=== PATIENT | male | born 1975 | race Caucasian/White ===

== ENCOUNTER 2020-07-25 08:53 | Outpatient (REF) | payer MEDICARE, MEDICAID, SELFPAY ==
[2020-07-25 10:55] LABS: Alanine Aminotransferase 31 U/L (0-40); Albumin Level 4.6 g/dL (3.5-5.0); Alkaline Phosphatase 32 U/L (39-117); Anion Gap 12 (12-20); Aspartate Amino Transferase 22 U/L (5-37); Bilirubin Total 0.5 mg/dL (0.0-1.0); Blood Urea Nitrogen 15 mg/dL (9-16); Calcium 8.9 mg/dL (8.4-10.2); Carbon Dioxide 27 mmol/L (22-29); Chloride 104 mmol/L (96-108); Cholesterol 208 mg/dL; Estimated Glomerular Filt Rate > 60; Glucose Random 110 mg/dL (60-115); HDL Cholesterol 32 mg/dL; LDL Cholesterol Calculated 123 mg/dl; Potassium 3.7 mmol/L (3.3-5.1); Sodium 139 mmol/L (135-145); Total Protein 6.8 g/dL (6.5-8.0); Triglycerides 268 mg/dL
[2020-07-25 10:57] LABS: Uric Acid 6.6 mg/dL (3.4-7.0)
[2020-07-25 11:14] LABS: Thyroid Stimulating Hormone 1.32 uIU/mL (0.32-4.0)
[2020-07-25 13:18] LABS: Folate 18.4 ng/mL (> or = 4.0); Vitamin B12 583 pg/mL (200-900)
== END 2020-07-25 08:54 | disposition home or self-care (01) ==
LOC: HO.LAB 08:53
PROVIDERS: PCP Internal Medicine; Visit Provider Internal Medicine
DX: E66.9 Obesity, unspecified (principal); G47.33 Obstructive sleep apnea (adult) (pediatric); E78.1 Pure hyperglyceridemia; F41.9 Anxiety disorder, unspecified; I10 Essential (primary) hypertension
CPT/HCPCS: 36415; 80053; 80061; 82607; 82746; 84436; 84443; 84550

== ENCOUNTER → 2022-05-07 14:26 | Outpatient (BNVA) | payer MEDICARE, MEDICAID, SELFPAY | PROVIDERS: PCP Internal Medicine; Visit Provider Internal Medicine | DX: Z13.89 Encounter for screening for other disorder (principal) ==

== ENCOUNTER 2023-01-14 13:45 | Outpatient (AMB) | payer MEDICARE, MEDICAID, SELFPAY ==
[2023-01-14 14:30] VITALS: BP 142/90; PULSE 72; RESP 17; O2SAT 98; BMI 33.4
--- NOTE | 2023-01-14 14:30 | A.OFFPC_ITS ---
Vital Signs 01/14/23 14:30 01/14/23 15:42 Height 6 ft Weight 246 lb 6 oz BMI 33.4 BP 142/90 H 130/80 Blood Pressure Location Lt brachial Lt brachial Position Sitting Sitting Respiration 17 Pulse 72 Pulse Source Pulse Oximeter Pulse Oximetry (%) 98 Oxygen Delivery Method Room Air Intake Visit Reasons: Annual Exam Intake Note: Patient is here today for a physical. 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 Accompanied by: Self / Same As Patient Allergies cefaclor Allergy (Unknown, Verified 01/14/23 14:56) Unknown Erythromycin Allergy (Unknown, Verified 01/14/23 14:56) Unknown Penicillins [PENICILLINS] Allergy (Unknown, Verified 01/14/23 14:56) UNKNOWN simvastatin [Zocor] Allergy (Unknown, Verified 01/14/23 14:56) Unknown Medication List - Last Reconciled 01/14/23 by Mckayla Gutierrez MD acetaminophen (Tylenol Extra Strength) 1,000 mg (2 x 500 mg) PO TID PRN 30 days allopurinol 100 mg PO BID 28 days bupropion HCl 150 mg PO DAILY cholecalciferol (vitamin D3) 25 mcg (1/2 x 50 mcg (2,000 unit)) PO QAM [CPAP ] cyanocobalamin (vitamin B-12) (Vitamin B-12) 1,000 mcg PO DAILY fenofibrate nanocrystallized 145 mg PO BEDTIME fluticasone propionate 50 mcg/actuation 1 spray intranasal DAILY folic acid 1 mg PO DAILY melatonin 3 mg PO BEDTIME multivitamin 1 tab PO DAILY risperidone 1.5 mg PO BEDTIME risperidone (Risperdal) 0.5 mg PO BEDTIME triamcinolone acetonide 0.1% 1 appl topical DAILY 7 days Tobacco use date assessed: 01/07/22 HPI Annual Exam HPI Details 47-year-old obese male with impaired glu cose tolerance impulse control behavior hypercholesterolemia obstructive sleep apnea coming in for physical exam last seen in May 2022. [facility] Medical History (Updated 01/14/23 @ 15:57 by Mckayla Gutierrez MD) Impacted cerumen of both ears Screening for colon cancer Rash Impaired glucose tolerance Mental and behavioral problem Impulse control disorder Hypercholesterolemia Obesity (BMI 30-39.9) Obstructive sleep apnea Anemia Vitamin B12 deficiency Anxiety Surgical History History of surgery on lower extremity History of eye surgery Family History Father Past heart attack Mother Breast cancer Paternal Grandfather CVD (cardiovascular disease) Myocardial infarction Paternal Uncle Myocardial infarction CVD (cardiovascular disease) Social History Housing: Apartment Alcohol intake: never Patient Tobacco Use Status: Former Tobacco user Tobacco use type: Cigarette e-Cigarette/Vaping Use: Never Used Second Hand Smoke Exposure: No service: No Current occupational status: disabled Cognitive needs: Yes Hearing needs: No Vision needs: Yes Questionnaire Thrive Questionnaire Date Thrive assessed: 05/18/22 AUDIT C Alcohol Use Questionnaire (AUDIT-C) 1. How often do you have a drink containing alcohol?: Never 2. How many drinks containing alcohol do you have on a typical day when you are drinking?: 1 or 2 3. How often do you have six or more drinks on one occasion?: Never Total Score: 0 Score Reviewed/Action Taken: No FELIBERTO-7 AMB Questionnaire FELIBERTO-7 Date FELIBERTO - 7 assessed: 05/18/22 Source: Developed by Drs. Lester Mora, Ayana Mead, Trace Lomeli and colleagues, with an educational rekha from [employer]. Review of Systems Const Denies poor appetite and Denies weakness Eyes Denies no additional complaints ENT Reports Normal hearing present, Denies dizziness, Denies nasal congestion, Denies tinnitus and Denies sore throat Card Denies chest pain, Denies syncope, Denies rapid heart rate and Denies dyspnea Resp Denies cough and Denies dyspnea GI Denies change in stool character, Reports constipation, Denies diarrhea, Denies nausea and Denies vomiting Denies dysuria and Denies urinary frequency Neuro Reports Normal hearing present, Denies confusion, Denies dizziness, Denies syncope and Denies weakness Psych Denies confusion Physical exam (Primary Care) Vital Signs: Last Vital Signs Pulse 72 01/14/23 14:30 Resp 17 01/14/23 14:30 BP 142/90 H 01/14/23 14:30 Pulse Ox 98 01/14/23 14:30 Oxygen Delivery Method Room Air 01/14/23 14:30 BMI result Body Mass Index 33.4 Tobacco/Smoking Status: Tobacco use Status Tobacco use date assessed 01/07/22 01/14/23 14:31 Patient Tobacco Use Status Former Tobacco user 01/14/23 14:31 Tobacco use type Cigarette 01/14/23 14:31 e-Cigarette/Vaping Use Never Used 01/14/23 14:31 Thrive Assessment: Date of Thrive Assessment Date Thrive assessed 05/18/22 01/14/23 14:31 Const General: No confusion Orientation/consciousness: No confusion HENMT Other: impacted cerumen bilateral Head: Yes normocephalic Ears: external ears normal Face and sinus: Yes normal facial exam Mouth: moist mucous membranes Throat: Yes tonsils normal Eyes Conjunctivae: conjunctivae normal Pupils: Equal, round and reactive pupils present and Pupil accommodation reflex normal Direct Ophthalmoscopy: normal light reflex Neck Neck: No lymphadenopathy Thyroid: Thyroid normal Chest Chest palpation & inspection: normal inspection of the chest Resp Effort & Inspection: normal respiratory effort and no audible wheezes Auscultation: clear to auscultation bilaterally, no crackles, no wheezes and lung sounds not diminished Cardio Rate: regular rate Rhythm: regular rhythm Peripheral pulses: radial pulses present and dorsalis pedis present GI Palpation (GI): no masses Auscultation: normal bowel sounds and normoactive bowel sounds Rectal Exam - Male: Yes deferred Skin General skin exam: no rashes or lesions noted Rashes: no rashes Neuro General: No confusion Cranial nerves: Yes Equal, round and reactive pupils present and Yes Normal hearing present Cognition (Neuro): normal cognition Gait exam (Neuro): Normal gait present Motor exam (neuro): 5/5 motor strength present throughout Deep tendon reflexes (DTR's): Right brachioradialis reflex intensity grade: 2+, Left brachioradialis reflex intensity grade: 2+, Right patellar reflex intensity grade: 2+ and Left patellar reflex intensity grade: 2+ Extrem General: No edema Office Procedures Cerumen Removal From which ear canal was the cerumen removed: bilateral Removal: otoscope w/curette Notes: patient tolerated procedure well, no complications and ear canal clear [id number] Wax Removal by Spoon/Curette Flu Questionnaire Does the patient have a severe egg allergy?: No Does the patient have severe life threatening allergies?: No Does the patient have a fever or illness today?: No Has the patient ever had Guillain-[place] Syndrome?: No Has the patient ever had any past reaction to a flu shot?: No Immunizations flu vacc [id number] 6mos up(PF) 60 mcg(15 mcgx4)/0.5 mL IM syringe Performing Provider: Mckayla Gutierrez MD Performing [facility] [place] [facility] Administered by: CRISTIANE Duran on 01/14/23 15:19 Dose Route Admin Location Dispensed Lot Number Expiration Date NDC Staple Laster 0.5 mL IM Left Deltoid 0.5 mL [id number] 09/11/23 [id number] [employer] VIS Given Date VIS Provided VIS Publication Date 01/14/23 Single Vaccine 20 Eligibility Eligibility Date Funding Source Not VFC Eligible 01/14/23 Private Assessment and Plan Assessment & Plan (1) Annual physical exam: Code(s): Z00.00 - Encounter for general adult medical examination without abnormal findi ngs (2) Obesity (BMI 30-39.9): Code(s): E66.9 - Obesity, unspecified Plan: Diet and exercise noted weight loss (3) Obstructive sleep apnea: Comment: On the CPAP uses > 4 hours and benefits patient Code(s): G47.33 - Obstructive sleep apnea (adult) (pediatric) Plan: Continue to use the CPAP more than 4 hours a night and benefits from this (4) Anemia: Code(s): D64.9 - Anemia, unspecified Plan: Patient needs blood work follow-up (5) Hypercholesterolemia: Code(s): E78.00 - Pure hypercholesterolemia, unspecified Plan: Avoid fried foods, chicken skin, eggs, butter margarine, pastries and meat. Be it pork or beef they have a lot of cholesterol LDL goal of less than 130 and triglyceride of less than 150. Patient is on FENA fibroid blood work request (6) Impaired glucose tolerance: Code(s): R73.02 - Impaired glucose tolerance (oral) Plan: Decrease the amount of carbohydrate intake, pasta, bread, rice and potatoes are all sugar and that is aside from all the sweet stuff, remember that fruits are good but they are Sweet also. Blood work requested (7) Impulse control disorder: Code(s): F63.9 - Impulse disorder, unspecified Plan: Continue with counseling and therapy (8) Impacted cerumen of both ears: Code(s): H61.23 - Impacted cerumen, bilateral Plan: scoop and otoscope used TM intact (9) Onychomycosis: Code(s): B35.1 - Tinea unguium Orders: Orders Influenza [id number] Immunization Today Z23 - Encounter for immunization Referrals Podiatry Referral B35.1 - Tinea unguium Medications: New dextromethorphan polistirex ER (Delsym 12 hour) 10 mL PO Q12H PRN 89 mL 0RF cough Refilled fluticasone propionate 50 mcg/actuation administer into each nostril 1 spray intranasal DAILY 15.8 mL 6RF R73.02 - Impaired glucose tolerance (oral) Coding Level of Care Code Est Pt Prev Care 40-64y(55342) Diagnoses Annual physical exam Z00.00 Obesity (BMI 30-39.9) E66.9 Obstructive sleep apnea G47.33 Anemia D64.9 Hypercholesterolemia E78.00 Impaired glucose tolerance R73.02 Impulse control disorder F63.9 Impacted cerumen of both ears H61.23 Onychomycosis B35.1 CPT Codes Office Procedure - CPT: [id number]-[id number] Wax Removal by Spoon/Curette ([id number])
[2023-01-14 15:42] VITALS: BP 130/80
== END 2023-01-14 16:07 | disposition home or self-care (01) ==
PROVIDERS: PCP Internal Medicine; Visit Provider Internal Medicine
DX: Z23 Encounter for immunization (principal); Z00.00 Encounter for general adult medical examination without abnormal findings; E66.9 Obesity, unspecified; Z68.33 Body mass index [BMI] 33.0-33.9, adult; F63.9 Impulse disorder, unspecified; H61.23 Impacted cerumen, bilateral
CPT/HCPCS: 69210; 90471; 90686; 99396

== ENCOUNTER 2023-01-15 08:46 | Outpatient (REF) | payer MEDICARE, MEDICAID, SELFPAY ==
[2023-01-15 09:01] LABS: MANUAL DIFF FLAG NO
[2023-01-15 10:10] LABS: Basophils Percent Auto 0.4 % (0-2); Eosinophils Absolute Auto 0.1 X10*3/uL (0.0-0.4); Eosinophils Percent Auto 1.3 % (0-4); Hematocrit 39.8 % (42.0-52.0); Hemoglobin 13.2 g/dl (14.0-18.0); Imm Gran Abs Auto 0.01 X10*3/uL (0.00-0.03); Imm Gran Pct Auto 0.2 % (0.0-0.4); Immature Retic Fraction 12.6 % (2.3-13.4); Lymphocytes Absolute Auto 1.7 X10*3/uL (1.2-4.9); Lymphocytes Percent Auto 36.9 % (20-40); Mean Corpuscular HGB Conc 33.2 g/dl (31.0-36.0); Mean Corpuscular Hemoglobin 29.9 pg (27.0-33.0); Mean Platelet Volume 10.2 fL (9.4-12.4); Monocytes Absolute Auto 0.3 X10*3/uL (0.1-1.2); Neutrophils Absolute Auto 2.5 x10*3/uL (2.0-8.3); Neutrophils Percent Auto 55.2 % (45-73); Platelet Count 186 X10*3/uL (160-400); Red Blood Count 4.42 X10*6/uL (4.60-5.80); Red Cell Distribution Width 12.4 % (11.0-16.0); Reticulocyte Percent 1.3 % (0.5-1.8); Reticulocytes Absolute 0.055 X10*6/uL (0.026-0.095); White Blood Count 4.5 X10*3/uL (4.8-10.8)
[2023-01-15 10:22] LABS: Estimated Average Glucose 94 mg/dL; Hemoglobin A1c % 4.9 % (<6.0)
[2023-01-15 10:36] LABS: Alanine Aminotransferase 13 U/L (0-40); Albumin Level 4.6 g/dL (3.5-5.0); Alkaline Phosphatase 32 U/L (39-117); Anion Gap 12 (12-20); Aspartate Amino Transferase 12 U/L (5-37); Bilirubin Total 0.4 mg/dL (0.0-1.0); Blood Urea Nitrogen 13 mg/dL (9-16); Calcium 9.5 mg/dL (8.4-10.2); Carbon Dioxide 26 mmol/L (22-29); Chloride 109 mmol/L (96-108); Cholesterol 139 mg/dL (<200); Estimated Glomerular Filt Rate > 60; Glucose Random 99 mg/dL (60-115); HDL Cholesterol 38 mg/dL (>40); Iron 58 mcg/dL (45-160); LDL Cholesterol Calculated 87 mg/dL (<100); Percent Iron Saturation 20 % (15-50); Potassium 3.8 mmol/L (3.3-5.1); Sodium 143 mmol/L (135-145); Total Iron Binding Capacity 297 mcg/dL (228-428); Total Protein 6.9 g/dL (6.5-8.0); Triglycerides 74 mg/dL (<150); Unsaturated Iron Binding 239 ug/dL
[2023-01-15 10:47] LABS: Ferritin 153 ng/mL (20-250); Free T4 (Free Thyroxine) 0.88 ng/dL (0.71-1.85); Thyroid Stimulating Hormone 1.36 uIU/mL (0.32-4.0)
[2023-01-15 10:50] LABS: Folate 11.5 ng/mL (> or = 4.0); Vitamin B12 916 pg/mL (200-900)
== END 2023-01-15 08:47 | disposition home or self-care (01) ==
LOC: HO.LAB 08:46
PROVIDERS: PCP Internal Medicine; Visit Provider Internal Medicine
DX: E78.00 Pure hypercholesterolemia, unspecified (principal); R73.02 Impaired glucose tolerance (oral); D64.9 Anemia, unspecified
CPT/HCPCS: 36415; 80053; 80061; 82607; 82728; 82746; 83036; 83540; 84439; 84443; 85025; 85045

== ENCOUNTER 2023-04-25 14:57 | Outpatient (AMB) | payer MEDICARE, MEDICAID, SELFPAY ==
[2023-04-25 15:02] VITALS: BP 158/90; PULSE 73; O2SAT 98; BMI 33.0
--- NOTE | 2023-04-25 15:02 | MHC.PC.OV ---
Vital Signs 04/25/23 15:02 04/25/23 15:42 Height 6 ft Weight 243 lb BMI 33.0 BP 158/90 H 130/70 Blood Pressure Location Lt brachial Lt brachial Position Sitting Sitting Pulse 73 Pulse Source Pulse Oximeter Pulse Oximetry (%) 98 Oxygen Delivery Method Room Air Intake Visit Reasons: 3mth f/u Intake Note: Patient is here to follow up on 3 months Allergies cefaclor Allergy (Unknown, Verified 04/25/23 15:03) Unknown Erythromycin Allergy (Unknown, Verified 04/25/23 15:03) Unknown Penicillins [PENICILLINS] Allergy (Unknown, Verified 04/25/23 15:03) UNKNOWN simvastatin [Zocor] Allergy (Unknown, Verified 04/25/23 15:03) Unknown Tobacco use date assessed: 04/25/23 HPI 3mth f/u HPI Details 47-year-old obese male with obstructive sleep apnea hypercholesterolemia impaired glucose tolerance impulse control disorder coming in for follow-up. Last seen in January 2023 [facility] Medical History (Updated 01/14/23 @ 15:57 by Mckayla Gutierrez MD) Impacted cerumen of both ears Screening for colon cancer Rash Impaired glucose tolerance Mental and behavioral problem Impulse control disorder Hypercholesterolemia Obesity (BMI 30-39.9) Obstructive sleep apnea Anemia Vitamin B12 deficiency Anxiety Surgical History History of surgery on lower extremity History of eye surgery Family History Father Past heart attack Mother Breast cancer Paternal Grandfather CVD (cardiovascular disease) Myocardial infarction Paternal Uncle Myocardial infarction CVD (cardiovascular disease) Social History Housing: Apartment Alcohol intake: never Patient Tobacco Use Status: Former Tobacco user Tobacco use type: Cigarette e-Cigarette/Vaping Use: Never Used Second Hand Smoke Exposure: No service: No Current occupational status: disabled Cognitive needs: Yes Hearing needs: No Vision needs: Yes Questionnaire Thrive Questionnaire Date Thrive assessed: 04/25/23 I am a: Patient What is your living situation today?: I have a steady place to live Within the past 12 months, did the food you bought not last and you didn't have the money to get more?: Never true Within the past 12 months, did you worry whether your food would run out before you got money to buy more?: Never true Do you have trouble paying for medicines?: No Do you have trouble getting transportation to medical appointments?: No Do you have trouble paying your heating and electricity bill?: No Do you have trouble taking care of your child, family member or friend?: No Do you have trouble with day-to-day activities such as bathing, preparing meals, shopping, managing finances, etc.?: No Are you currently unemployed and looking for a job?: No Are you interested in more education?: No Please select the resources that you would like help with: None THRIVE Score: 0 AUDIT C Alcohol Use Questionnaire (AUDIT-C) 1. How often do you have a drink containing alcohol?: Never 2. How many drinks containing alcohol do you have on a typical day when you are drinking?: 1 or 2 3. How often do you have six or more drinks on one occasion?: Never Total Score: 0 Score Reviewed/Action Taken: No FELIBERTO-7 AMB Questionnaire FELIBERTO-7 Date FELIBERTO - 7 assessed: 04/25/23 Source: Developed by Drs. Lester Mora, Ayana Mead, Trace Lomeli and colleagues, with an educational rekha from [employer]. Physical exam (Primary Care) Vital Signs: Last Vital Signs Pulse 73 04/25/23 15:02 BP 158/90 H 04/25/23 15:02 Pulse Ox 98 04/25/23 15:02 Oxygen Delivery Method Room Air 04/25/23 15:02 BMI result Body Mass Index 33.0 Tobacco/Smoking Status: Tobacco use Status Tobacco use date assessed 04/25/23 04/25/23 15:03 Patient Tobacco Use Status Former Tobacco user 04/25/23 15:03 Tobacco use type Cigarette 04/25/23 15:03 e-Cigarette/Vaping Use Never Used 04/25/23 15:03 Thrive Assessment: Date of Thrive Assessment Date Thrive assessed 04/25/23 04/25/23 15:03 Const General: alert; No acute distress Eyes Conjunctivae: conjunctivae normal Resp Auscultation: clear to auscultation bilaterally Cardio Rate: regular rate Rhythm: regular rhythm GI Inspection: Yes normal to inspection Extrem General: Yes normal to inspection and No edema Assessment and Plan Assessment & Plan (1) Obesity (BMI 30-39.9): Code(s): E66.9 - Obesity, unspecified Plan: Diet and exercise (2) Obstructive sleep apnea: Comment: On the CPAP uses > 4 hours and benefits patient Code(s): G47.33 - Obstructive sleep apnea (adult) (pediatric) Plan: Continue to use the CPAP more than 4 hours a night and benefits from this (3) Hypercholesterolemia: Code(s): E78.00 - Pure hypercholesterolemia, unspecified Plan: Avoid fried foods, chicken skin, eggs, butter margarine, pastries and meat. Be it pork or beef they have a lot of cholesterol LDL goal of less than 130 and triglyceride of less than 150. Patient on fenofibrate (4) Impaired glucose tolerance: Code(s): R73.02 - Impaired glucose tolerance (oral) Plan: Decrease the amount of carbohydrate intake, pasta, bread, rice and potatoes are all sugar and that is aside from all the sweet stuff, remember that fruits are good but they are Sweet also. (5) Anemia: Code(s): D64.9 - Anemia, unspecified Plan: Chronic and stable Orders: Referrals Gastroenterology Referral Z12.11 - Encounter for screening for malignant neoplasm of colon Coding Level of Care Code Est Pt Level 4 (63417) Diagnoses Obesity (BMI 30-39.9) E66.9 Obstructive sleep apnea G47.33 Hypercholesterolemia E78.00 Impaired glucose tolerance R73.02 Anemia D64.9
[2023-04-25 15:42] VITALS: BP 130/70
== END 2023-04-25 15:58 | disposition home or self-care (01) ==
PROVIDERS: PCP Internal Medicine; Visit Provider Internal Medicine
DX: G47.33 Obstructive sleep apnea (adult) (pediatric) (principal); E78.00 Pure hypercholesterolemia, unspecified; E66.9 Obesity, unspecified; Z68.33 Body mass index [BMI] 33.0-33.9, adult; R73.02 Impaired glucose tolerance (oral); D64.9 Anemia, unspecified
CPT/HCPCS: 99214

== ENCOUNTER 2023-05-23 15:13 | Outpatient (AMB) | payer MEDICARE, MEDICAID, SELFPAY ==
--- NOTE | 2023-05-23 15:16 | A.OFFVIS_ITS ---
Intake Vital Signs 05/23/23 15:17 Height 6 ft Weight 247 lb BMI 33.5 Blood Pressure Location Lt brachial Position Sitting Pulse Source Pulse Oximeter Oxygen Delivery Method Room Air Intake Visit Reasons: [facility] Road Equipment Operator Required: No Allergies cefaclor Allergy (Unknown, Verified 05/23/23 15:17) Unknown Erythromycin Allergy (Unknown, Verified 05/23/23 15:17) Unknown Penicillins [PENICILLINS] Allergy (Unknown, Verified 05/23/23 15:17) UNKNOWN simvastatin [Zocor] Allergy (Unknown, Verified 05/23/23 15:17) Unknown Medication List - Last Reconciled 05/23/23 by Mckayla Gutierrez MD acetaminophen (Tylenol Extra Strength) 1,000 mg (2 x 500 mg) PO TID PRN 30 days allopurinol 100 mg PO BID 28 days bupropion HCl 150 mg PO DAILY cholecalciferol (vitamin D3) 25 mcg (1/2 x 50 mcg (2,000 unit)) PO QAM [CPAP ] cyanocobalamin (vitamin B-12) (Vitamin B-12) 1,000 mcg PO DAILY dextromethorphan polistirex ER (Delsym 12 hour) 10 mL PO Q12H PRN fenofibrate nanocrystallized 145 mg PO BEDTIME fluticasone propionate 50 mcg/actuation 1 spray intranasal DAILY folic acid 1 mg PO DAILY melatonin 3 mg PO BEDTIME multivitamin 1 tab PO DAILY prednisone 4 tabs QD x 2 days then 3 tabs QD x 2 days then 2 tabs Qd x 2 days then 1 tab QD x 2 days PO daily; risperidone 1.5 mg PO BEDTIME risperidone (Risperdal) 0.5 mg PO BEDTIME triamcinolone acetonide 0.5% 1 appl topical DAILY HPI SAWV HPI Details 47-year-old obese male with obstructive sleep apnea hypercholesterolemia impaired glucose tolerance and anemia coming in for annual well visit. Last seen in April 2023. [facility] Medical History (Updated 05/23/23 @ 19:41 by Mckayla Gutierrez MD) Impacted cerumen of both ears Screening for colon cancer Rash Impaired glucose tolerance Mental and behavioral problem Impulse control disorder Hypercholesterolemia Obesity (BMI 30-39.9) Obstructive sleep apnea Anemia Vitamin B12 deficiency Anxiety Surgical History History of surgery on lower extremity History of eye surgery Family History Father Past heart attack Mother Breast cancer Paternal Grandfather CVD (cardiovascular disease) Myocardial infarction Paternal Uncle Myocardial infarction CVD (cardiovascular disease) Social History Housing: Apartment Alcohol intake: never Patient Tobacco Use Status: Former Tobacco user Tobacco use type: Cigarette e-Cigarette/Vaping Use: Never Used Second Hand Smoke Exposure: No service: No Current occupational status: disabled Cognitive needs: Yes Hearing needs: No Vision needs: Yes Questionnaire Medicare Wellness Checkup What is your age?: 65-69 (18-64) What gender do you identify with?: male During the past 4 weeks, how much have you been bothered by emotional problems such as feeling anxious, depressed, irritable, sad or downhearted, and blue?: not at all During the past 4 weeks, has your physical & emotional health limited your social activities with family, friends, neighbors, or groups?: not at all During the past 4 weeks, how much bodily pain have you generally had?: no pain During the past 4 weeks, was someone available to help you if you needed & wanted help?: no, not at all During the past 4 weeks, what was the hardest physical activity you could do for at least 2 minutes?: light Can you get to places out of walking distance without help? (For eg., can you travel alone on buses, taxis or drive your car?): Yes Can you go shopping for groceries or clothes without someone's help?: Yes Can you prepare your own meals?: No Can you do your housework without help?: No Because of any health problems, do you need the help of another person with your personal care needs such as eating, bathing, dressing or getting around the house?: No Can you handle your own money without help?: Yes During the past 4 weeks, how would you rate your health in general?: very good During the past 4 weeks how have things been going for you?: pretty well Are you having difficulties driving your car?: no Do you always fasten your seat belt when you are in a car?: yes, usually During past 4 weeks, have you been bothered by the following: never: Falling or dizzy when standing up Have you fallen 2 or more times in the past year?: No Are you afraid of falling?: No Are you a smoker?: no During the past 4 weeks, how many drinks of wine, beer, or other alcoholic beverages did you have?: no alcohol at all Do you exercise for about 20 minutes 3 or more times a week?: yes, most of the time Have you been given information to help with the following?: yes: Keeping track of your medications? and no: Hazards in your house that might hurt you? How often do you have trouble taking medicines the way you have been told to take them?: I always take medicine as prescribed How confident are you that you can control & manage most of your health problems?: not very confident What is your race?: White PHQ-9 Over the last 2 weeks, how often have you been bothered by any of the following problems? 1. Little interest or pleasure in doing things: not at all 2. Feeling down, depressed, or hopeless: not at all 3. Trouble falling or staying asleep, or sleeping too much: not at all 4. Feeling tired or having little energy: not at all 5. Poor appetite or overeating: not at all 6. Feeling bad about yourself - or that you are a failure or have let yourself o r your family down: not at all 7. Trouble concentrating on things, such as reading the newspaper or watching television: not at all 8. Moving or speaking so slowly that other people could have noticed. Or the opposite - being so fidgety or restless that you have been moving around a lot more than usual: not at all 9. Thoughts that you would be better off or of hurting yourself in some way: not at all Total score: 0 Depression Screening Interpretation: Negative Depression Screening Done: Yes 36378 - PHQ-9 Billing: Yes Source: Developed by Drs. Lester Mora, Ayana Mead, Trace alonso nd colleagues, with an educational rekha from [employer]. Review of Systems Const Denies poor appetite and Denies weakness Eyes Denies no additional complaints ENT Reports Normal hearing present, Denies dizziness, Denies nasal congestion, Denies tinnitus and Denies sore throat Card Denies chest pain, Denies syncope, Denies rapid heart rate and Denies dyspnea Resp Denies cough and Denies dyspnea GI Denies change in stool character, Reports constipation, Denies diarrhea, Denies nausea and Denies vomiting Denies dysuria and Denies urinary frequency Neuro Reports Normal hearing present, Denies confusion, Denies dizziness, Denies syncope and Denies weakness Psych Denies confusion Physical Exam Vital Signs: Oxygen Delivery Method Room Air 05/23/23 15:17 BMI result Body Mass Index 33.5 Const General: No confusion Orientation/consciousness: No confusion HEENT Head: Yes normocephalic Ears: external ears normal and TM's normal bilaterally Face and sinus: Yes normal facial exam Mouth: moist mucous membranes Throat: Yes tonsils normal Eyes Conjunctivae: conjunctivae normal Pupils: Equal, round and reactive pupils present and Pupil accommodation reflex normal Direct Ophthalmoscopy: normal light reflex Neck Neck: No lymphadenopathy Thyroid: Thyroid normal Chest Chest palpation & inspection: normal inspection of the chest Resp Effort & Inspection: normal respiratory effort and no audible wheezes Auscultation: clear to auscultation bilaterally, no crackles, no wheezes and lung sounds not diminished Cardio Rate: regular rate Rhythm: regular rhythm Peripheral pulses: radial pulses present and dorsalis pedis present GI Palpation (GI): no masses Auscultation: normal bowel sounds and normoactive bowel sounds Rectal Exam - Male: Yes deferred Skin General skin exam: no rashes or lesions noted Rashes: no rashes Neuro General: No confusion Cranial nerves: Yes Equal, round and reactive pupils present and Yes Normal hearing present Cognition (Neuro): normal cognition Gait exam (Neuro): Normal gait present Motor exam (neuro): 5/5 motor strength present throughout Deep tendon reflexes (DTR's): Right brachioradialis reflex intensity grade: 2+, Left brachioradialis reflex intensity grade: 2+, Right patellar reflex intensity grade: 2+ and Left patellar reflex intensity grade: 2+ Extrem General: No edema Assessment & Plan Assessment & Plan (1) Medicare annual wellness visit, subsequent: Code(s): Z00.00 - Encounter for general adult medical examination without abnormal findings Plan: Keep well hydrated, keep active and eat healthy (2) Obstructive sleep apnea: Comment: On the CPAP uses > 4 hours and benefits patient Code(s): G47.33 - Obstructive sleep apnea (adult) (pediatric) Plan: Continue to use the CPAP more than 4 hours a night and benefits from this. (3) Obesity (BMI 30-39.9): Code(s): E66.9 - Obesity, unspecified Plan: Diet and exercise (4) Hypercholesterolemia: Code(s): E78.00 - Pure hypercholesterolemia, unspecified Plan: Avoid fried foods, chicken skin, eggs, butter margarine, pastries and meat. Be it pork or beef they have a lot of cholesterol LDL goal of less than 130 and triglyceride of less than 150 on fenofibrate (5) Impulse control disorder: Code(s): F63.9 - Impulse disorder, unspecified Plan: Continue with psychiatric management. (6) Screening for colon cancer: Code(s): Z12.11 - Encounter for screening for malignant neoplasm of colon Plan: Reminded about colonoscopy (7) Contact dermatitis: Code(s): L25.9 - Unspecified contact dermatitis, unspecified cause Qualifiers: Contact dermatitis type: irritant Contact dermatitis trigger: non-food plants Qualified Code(s): L24.7 - Irritant contact dermatitis due to plants, except food Plan: Oral steroids and cream sent in. Orders: Referrals Gastroenterology Referral Z12.11 - Encounter for screening for malignant neoplasm of colon Medications: New prednisone 4 tabs QD x 2 days then 3 tabs QD x 2 days then 2 tabs Qd x 2 days then 1 tab QD x 2 days PO daily; 20 tabs 0RF J45.909 - Unspecified asthma, uncomplicated, L25.9 - Unspecified contact dermatitis, unspecified cause triamcinolone acetonide 0.5% apply to forarms bilateral 1 appl topical DAILY 30 grams 0RF L25.9 - Unspecified contact dermatitis, unspecified cause Quality Reporting (2019) Depression/Bipolar (159/160/161/177) PHQ-9: Total score: 0 Coding Level of Care Code Medicare Subsequent (G0439) Diagnoses Medicare annual wellness visit, subsequent Z00.00 Obstructive sleep apnea G47.33 Obesity (BMI 30-39.9) E66.9 Hypercholesterolemia E78.00 Impulse control disorder F63.9 Screening for colon cancer Z12.11 Irritant contact dermatitis due to plants, except food L24.7 Contact dermatitis type: irritant Contact dermatitis trigger: non-food plants
[2023-05-23 15:17] VITALS: BMI 33.5
== END 2023-05-23 16:40 | disposition home or self-care (01) ==
PROVIDERS: Visit Provider Internal Medicine
DX: Z00.00 Encounter for general adult medical examination without abnormal findings (principal); G47.33 Obstructive sleep apnea (adult) (pediatric); E66.9 Obesity, unspecified; Z68.33 Body mass index [BMI] 33.0-33.9, adult; F63.9 Impulse disorder, unspecified
CPT/HCPCS: G0439

== ENCOUNTER 2023-05-27 07:59 | Outpatient (AMB) | payer MEDICARE, MEDICAID, SELFPAY ==
[2023-05-27 08:03] VITALS: BMI 33.5
--- NOTE | 2023-05-27 08:03 | A.OFFPC_ITS ---
Vital Signs 05/27/23 08:03 Height 6 ft Weight 247 lb BMI 33.5 Blood Pressure Location Lt brachial Position Sitting Pulse Source Pulse Oximeter Oxygen Delivery Method Room Air Intake Visit Reasons: poison cathi Intake Note: Patient did not want me to touch him. Says he has poison cathi! No vitals were taken, but states that cream/ointment did not work for him. Allergies cefaclor Allergy (Unknown, Verified 05/27/23 08:03) Unknown Erythromycin Allergy (Unknown, Verified 05/27/23 08:03) Unknown Penicillins [PENICILLINS] Allergy (Unknown, Verified 05/27/23 08:03) UNKNOWN simvastatin [Zocor] Allergy (Unknown, Verified 05/27/23 08:03) Unknown Tobacco use date assessed: 04/25/23 Dental Screening Dental Screen Date: 05/27/23 Did you have a dental visit in the last 12 months?: Yes Did you have a dental problem in the last 6 months where you did not have access to dental care?: No Was dental information given to patient?: Patient has dentist HPI poison cathi HPI Details 47-year-old obese male with impulse cont rol be disorder coming in for an acute problem. Patient was just seen 4 days ago for allergic contact dermatitis and was prescribed oral steroids and steroid cream. Patient continues to have the rash with a lot of pruritus. Prompting for consultation. [facility] Medical History (Updated 05/27/23 @ 08:34 by Mckayla Gutierrez MD) Impacted cerumen of both ears Screening for colon cancer Rash Impaired glucose tolerance Mental and behavioral problem Impulse control disorder Hypercholesterolemia Obesity (BMI 30-39.9) Obstructive sleep apnea Anemia Vitamin B12 deficiency Anxiety Surgical History History of surgery on lower extremity History of eye surgery Family History Father Past heart attack Mother Breast cancer Paternal Grandfather CVD (cardiovascular disease) Myocardial infarction Paternal Uncle Myocardial infarction CVD (cardiovascular disease) Social History Housing: Apartment Alcohol intake: never Patient Tobacco Use Status: Former Tobacco user Tobacco use type: Cigarette e-Cigarette/Vaping Use: Never Used Second Hand Smoke Exposure: No service: No Current occupational status: disabled Cognitive needs: Yes Hearing needs: No Vision needs: Yes Questionnaire PHQ-9 Over the last 2 weeks, how often have you been bothered by any of the following problems? 1. Little interest or pleasure in doing things: not at all 2. Feeling down, depressed, or hopeless: not at all 3. Trouble falling or staying asleep, or sleeping too much: not at all 4. Feeling tired or having little energy: not at all 5. Poor appetite or overeating: not at all 6. Feeling bad about yourself - or that you are a failure or have let yourself or your family down: not at all 7. Trouble concentrating on things, such as reading the newspaper or watching television: not at all 8. Moving or speaking so slowly that other people could have noticed. Or the opposite - being so fidgety or restless that you have been moving around a lot more than usual: not at all 9. Thoughts that you would be better off or of hurting yourself in some way: not at all Total score: 0 Depression Screening Interpretation: Negative Depression Screening Done: Yes 36039 - PHQ-9 Billing: Yes Source: Developed by Drs. Lester Mora, Ayana Mead, Trace Lomeli and colleagues, with an educational rekha from [employer]. Thrive Questionnaire Date Thrive assessed: 04/25/23 AUDIT C Alcohol Use Questionnaire (AUDIT-C) 1. How often do you have a drink containing alcohol?: Never 2. How many drinks containing alcohol do you have on a typical day when you are drinking?: 1 or 2 3. How often do you have six or more drinks on one occasion?: Never Total Score: 0 Score Reviewed/Action Taken: No FELIBERTO-7 AMB Questionnaire FELIBERTO-7 Date FELIBERTO - 7 assessed: 04/25/23 Source: Developed by Drs. Lester Mora, Ayana Mead, Trace Lomeli and colleagues, with an educational rekha from [employer]. Physical exam (Primary Care) Vital Signs: Oxygen Delivery Method Room Air 05/27/23 08:03 BMI result Body Mass Index 33.5 Tobacco/Smoking Status: Tobacco use Status Tobacco use date assessed 04/25/23 05/27/23 08:04 Patient Tobacco Use Status Former Tobacco user 05/27/23 08:04 Tobacco use type Cigarette 05/27/23 08:04 e-Cigarette/Vaping Use Never Used 05/27/23 08:04 PHQ-9: PHQ-9 Score PHQ-9: Total score 0 05/27/23 08:04 Depression Screening Interpretation: Negative Thrive Assessment: Date of Thrive Assessment Date Thrive assessed 04/25/23 05/27/23 08:04 Skin Other: Maculopapular Erythematous rash on both arms and chest and face Assessment and Plan Assessment & Plan (1) Allergic contact dermatitis: Code(s): L23.9 - Allergic contact dermatitis, unspecified cause Plan: will give the steroids but this time methylprednisolone, hydroxyzine sent in for the pruritus and refill on the cream given. Medications: New methylprednisolone PO PER PKG DIR for 6 days 21 ea 0RF L23.9 - Allergic contact dermatitis, unspecified cause hydroxyzine HCl 25 mg PO TID PRN 30 tabs 0RF itching L23.9 - Allergic contact dermatitis, unspecified cause Refilled triamcinolone acetonide 0.5% apply to forarms bilateral 1 appl topical DAILY 45 grams 0RF L25.9 - Unspecified contact dermatitis, unspecified cause Coding Level of Care Code Est Pt Level 3 (43657) Diagnoses Allergic contact dermatitis L23.9
== END 2023-05-27 08:39 | disposition home or self-care (01) ==
PROVIDERS: PCP Internal Medicine; Visit Provider Internal Medicine
DX: L23.9 Allergic contact dermatitis, unspecified cause (principal)
CPT/HCPCS: 99213

== ENCOUNTER 2023-09-12 15:39 | Outpatient (AMB) | payer MEDICARE, SELFPAY ==
[2023-09-12 15:47] VITALS: BP 162/82; PULSE 75; BMI 34.4
--- NOTE | 2023-09-12 15:47 | A.OFFPC_ITS ---
Vital Signs 09/12/23 15:47 Height 6 ft Weight 254 lb BMI 34.4 BP 162/82 H Blood Pressure Location Lt brachial Position Sitting Pulse 75 Pulse Source Pulse Oximeter Oxygen Delivery Method Room Air Intake Visit Reasons: Obesity Organ Recovery Coordinator Required: No Resident Manager: Present Allergies cefaclor Allergy (Unknown, Verified 09/12/23 15:47) Unknown Erythromycin Allergy (Unknown, Verified 09/12/23 15:47) Unknown Penicillins [PENICILLINS] Allergy (Unknown, Verified 09/12/23 15:47) UNKNOWN simvastatin [Zocor] Allergy (Unknown, Verified 09/12/23 15:47) Unknown Tobacco use date assessed: 04/25/23 Dental Screening Dental Screen Date: 05/27/23 HPI Obesity HPI Details 48-year-old male with hypercholesterolem ia obstructive sleep apnea impulse control disorder impaired glucose tolerance last seen in 06/01/2023 having allergic contact dermatitis. Patient is here for follow-up.. BP good at home , uses the CPAP Q night PFS Medical History (Updated 05/27/23 @ 08:34 by Mckayla Gutierrez MD) Impacted cerumen of both ears Screening for colon cancer Rash Impaired glucose tolerance Mental and behavioral problem Impulse control disorder Hypercholesterolemia Obesity (BMI 30-39.9) Obstructive sleep apnea Anemia Vitamin B12 deficiency Anxiety Surgical History History of surgery on lower extremity History of eye surgery Family History Father Past heart attack Mother Breast cancer Paternal Grandfather CVD (cardiovascular disease) Myocardial infarction Paternal Uncle Myocardial infarction CVD (cardiovascular disease) Social History Housing: Apartment Alcohol intake: never Patient Tobacco Use Status: Former Tobacco user Tobacco use type: Cigarette e-Cigarette/Vaping Use: Never Used Second Hand Smoke Exposure: No service: No Current occupational status: disabled Cognitive needs: Yes Hearing needs: No Vision needs: Yes Questionnaire Thrive Questionnaire Date Thrive assessed: 04/25/23 FELIBERTO-7 AMB Questionnaire FELIBERTO-7 Date FELIBERTO - 7 assessed: 04/25/23 Source: Developed by Drs. Lester Mora, Ayana Mead, Trace Lomeli and colleagues, with an educational rekha from [employer]. Physical exam (Primary Care) Vital Signs: Last Vital Signs Pulse 75 09/12/23 15:47 BP 162/82 H 09/12/23 15:47 Oxygen Delivery Method Room Air 09/12/23 15:47 BMI result Body Mass Index 34.4 Tobacco/Smoking Status: Tobacco use Status Tobacco use date assessed 04/25/23 09/12/23 15:47 Patient Tobacco Use Status Former Tobacco user 09/12/23 15:47 Tobacco use type Cigarette 09/12/23 15:47 e-Cigarette/Vaping Use Never Used 09/12/23 15:47 Thrive Assessment: Date of Thrive Assessment Date Thrive assessed 04/25/23 09/12/23 15:47 Const General: alert; No acute distress Eyes Conjunctivae: conjunctivae normal Resp Auscultation: clear to auscultation bilaterally Cardio Rate: regular rate Rhythm: regular rhythm GI Inspection: Yes normal to inspection Extrem General: Yes normal to inspection and No edema Assessment and Plan Assessment & Plan (1) Obstructive sleep apnea: Comment: On the CPAP uses > 4 hours and benefits patient Code(s): G47.33 - Obstructive sleep apnea (adult) (pediatric) Plan: Continue to use the CPAP more than 4 hours a night and benefits from this. (2) Obesity (BMI 30-39.9): Code(s): E66.9 - Obesity, unspecified Plan: Diet and exercise (3) Hypercholesterolemia: Code(s): E78.00 - Pure hypercholesterolemia, unspecified Plan: Avoid fried foods, chicken skin, eggs, butter margarine, pastries and meat. Be it pork or beef they have a lot of cholesterol LDL goal of less than 130 and triglyceride of less than 150. On fenofibrate (4) Impulse control disorder: Code(s): F63.9 - Impulse disorder, unspecified Plan: Continue with counseling and therapy (5) Impaired glucose tolerance: Code(s): R73.02 - Impaired glucose tolerance (oral) Plan: Decrease the amount of carbohydrate intake, pasta, bread, rice and potatoes are all sugar and that is aside from all the sweet stuff, remember that fruits are good but they are Sweet also. Orders: Orders Complete Blood Count Auto Diff 3 Months E78.00 - Pure hypercholesterolemia, unspecified Comprehensive Met. Panel 3 Months E78.00 - Pure hypercholesterolemia, unspecified Thyroid Stimulating Hormone 3 Months E78.00 - Pure hypercholesterolemia, unspe cified Lipid Panel 3 Months E78.00 - Pure hypercholesterolemia, unspecified Free T4 (Free Thyroxine) 3 Months E78.00 - Pure hypercholesterolemia, unspecified Vitamin B12 and Folate 3 Months E78.00 - Pure hypercholesterolemia, unspecified Coding Level of Care Code Est Pt Level 4 (42060) Diagnoses Obstructive sleep apnea G47.33 Obesity (BMI 30-39.9) E66.9 Hypercholesterolemia E78.00 Impulse control disorder F63.9 Impaired glucose tolerance R73.02
== END 2023-09-12 16:33 | disposition home or self-care (01) ==
PROVIDERS: PCP Internal Medicine; Visit Provider Internal Medicine
DX: G47.33 Obstructive sleep apnea (adult) (pediatric) (principal); E66.9 Obesity, unspecified; Z68.34 Body mass index [BMI] 34.0-34.9, adult; E78.00 Pure hypercholesterolemia, unspecified; F63.9 Impulse disorder, unspecified; R73.02 Impaired glucose tolerance (oral)
CPT/HCPCS: 99214

== ENCOUNTER 2023-11-11 09:47 | Outpatient (AMB) | payer MEDICARE, MEDICAID, SELFPAY ==
--- NOTE | 2023-11-11 09:50 | MHC.OFFVIS ---
Vital Signs 11/11/23 10:09 Height 6 ft Weight 262 lb 5.601 oz BMI 35.6 BP 145/83 H Blood Pressure Location Lt brachial Position Sitting Pulse 84 Intake Visit Reasons: Colonoscopy screening Intake Note: New patient in office today for colonoscopy screening. CC: Patient denies having any GI symptoms or concerns. 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 He is referred by Mckayla Gutierrez of [facility] [place] primary care. PMX Obesity YONY Impulse control disorder High cholesterol History of right tib-fib fracture Impaired glucose tolerance Anxiety * SURGICAL HISTORY Right fracture repair tib fib Left eye surgery * ALLERGIES Cefaclor Erythromycin Penicillin Simvastatin * [facility] LABS: None since 2022 TODAY'S VISIT This is his first colonoscopy He denies any bowel or upper GI problems There are no prior problems with anesthesia or sedation He denies any cardiac or respiratory problems. No known FHX of crc or polyps. [facility] Medical History Colon cancer screening Annual physical exam Screening for colon cancer Medicare annual wellness visit, initial Medicare annual wellness visit, subsequent Impacted cerumen of both ears Rash Impaired glucose tolerance Mental and behavioral problem Impulse control disorder Hypercholesterolemia Obesity (BMI 30-39.9) Obstructive sleep apnea Anemia Vitamin B12 deficiency Anxiety Surgical History History of surgery on lower extremity History of eye surgery Family History Father Past heart attack Mother Breast cancer Paternal Grandfather CVD (cardiovascular disease) Myocardial infarction Paternal Uncle Myocardial infarction CVD (cardiovascular disease) Social History Housing: Apartment Alcohol intake: never Patient Tobacco Use Status: Former Tobacco user Tobacco use type: Cigarette e-Cigarette/Vaping Use: Never Used Second Hand Smoke Exposure: No service: No Current occupational status: disabled Cognitive needs: Yes Hearing needs: No Vision needs: Yes Review of Systems Const Denies fatigue, Denies fever(s), Denies night sweats, Denies poor appetite and Denies weight loss Eyes Details: glasses Reports requires corrective lenses ENT Reports Normal hearing present, Denies dental pain, Denies dysphagia, Denies hearing loss, Denies mouth pain, Denies odynophagia, Denies throat swelling, Denies tongue swelling and Reports other (Dentition adequate) Card Reports no additional complaints Resp Reports no additional complaints GI Details: Denies abdominal pain, Denies melena, Denies bloating, Denies hematochezia, Denies constipation, Denies GI cramping, Denies dysphagia, Denies excessive flatus, Denies early satiety, Denies heartburn, Denies diarrhea, Denies nausea, Denies odynophagia, Denies vomiting and Denies hematemesis Skin/Breast Denies pruritus, Denies lesions, Denies rash and Denies jaundice Neuro Reports Normal hearing present and Denies Abnormal speech present Endo Denies fatigue Aller/Immun Denies throat swelling and Denies tongue swelling Physical Exam Vital Signs: Last Vital Signs Pulse 84 11/11/23 10:09 BP 145/83 H 11/11/23 10:09 BMI result Body Mass Index 35.6 Const General: cooperative, no acute distress, well developed and well groomed Nutritional Appearance: well nourished and obese Orientation/consciousness: oriented to person, oriented to place and oriented to time Limitations: No language barrier HEENT Head: Yes normocephalic and Yes atraumatic Eyes General: appearance normal, both eyes and all related structures Pupils: Equal, round and reactive pupils present Neck Neck: Yes normal visual inspection and Yes no lymphadenopathy Thyroid: Thyroid normal Resp Effort & Inspection: normal respiratory effort and able to speak in complete sentences Auscultation: clear to auscultation bilaterally Cardio Rate: regular rate Rhythm: abnormal rhythm regularly irregular (skips q 4th beat, then reverts to NSR) Heart sounds: Normal, physiologic split S2 sound present Peripheral pulses: radial pulses present and posterior tibial pulses present GI Inspection: No distended, Yes Abdominal panniculus present and Yes obesity Palpation (GI): Soft to palpation, nontender, no guarding, not rigid and No hepatosplenomegaly present Percussion: Yes normal to percussion Auscultation: normal bowel sounds Rectal Exam - Male: Yes deferred Skin General skin exam: no rashes or lesions noted, turgor normal, skin not dry, no jaundice, No spider nevi and no striae Rashes: no rashes Nails: normal Neuro General: oriented to person, oriented to place and oriented to time Cranial nerves: Yes Equal, round and reactive pupils present and Yes Normal hearing present Speech: No Abnormal speech present Extrem General: Yes normal to inspection, No clubbing, No cyanosis and No edema Psych Appearance: grossly normal and well kempt Mental Status: mental status grossly normal Speech and movement: Normal speech and movement present Affect: normal affect Attitude: cooperative Thought process: Normal thought process present and not confabulating Thought content: Normal thought content present Insight: Fair insight present (Psych) Judgement: Fair judgement present (Psych) Assessment & Plan Assessment & Plan (1) Pre-op examination: Code(s): Z01.818 - Encounter for other preprocedural examination Category: Medical (2) Regularly irregular pulse rhythym: Comment: PVC q4th beat Code(s): I49.9 - Cardiac arrhythmia, unspecified Category: Medical Plan This is his first colonoscopy He denies any bowel or upper GI problems There are no prior problems with anesthesia or sedation He denies any cardiac or respiratory problems. No known FHX of crc or polyps. Orders: Orders Complete Blood Count Auto Diff 11/11/23 Z.818 - Encounter for other preprocedural examination Colonoscopy - GI Use Only 11/11/23 Z.818 - Encounter for other preprocedural examination ECG 12 lead EKG 11/11/23 I49.9 - Cardiac arrhythmia, unspecified Comprehensive Met. Panel 11/11/23 Z.818 - Encounter for other preprocedural examination Medications: New peg 3350-electrolytes 236-22.74-6.74 -5.86 gram (Golytely) until fecal effluent is clear; do not exceed a total volume of 2,000 mL 240 mL PO Q10M 4,000 mL 0RF 1 day Z12.11 - Encounter for screening for malignant neoplasm of colon bisacodyl (Dulcolax (bisacodyl)) 10 mg (2 x 5 mg) PO BEDTIME 4 tabs 0RF 2 days Coding Level of Care Code New Pt Level 3 (37723) Diagnoses Pre-op examination Z01.818 Regularly irregular pulse rhythym I49.9
[2023-11-11 10:09] VITALS: BP 145/83; PULSE 84; BMI 35.6
== END 2023-11-11 10:40 | disposition home or self-care (01) ==
PROVIDERS: PCP Internal Medicine; Visit Provider Nurse Practitioner
DX: Z01.818 Encounter for other preprocedural examination (principal); Z12.11 Encounter for screening for malignant neoplasm of colon; I49.9 Cardiac arrhythmia, unspecified
CPT/HCPCS: 99024

== ENCOUNTER → 2023-11-11 09:47 | Outpatient (REF) | payer MEDICARE, MEDICAID, SELFPAY ==
--- NOTE | 2023-11-11 10:54 | ECG_ITS ---
Test Reason : ARRYTHMIA Blood Pressure : / mmHG Vent. Rate : 080 BPM Atrial Rate : 080 BPM P-R Int : 132 ms QRS Dur : 082 ms QT Int : 376 ms P-R-T Axes : 071 002 050 degrees QTc Int : 433 ms Sinus rhythm with frequent Premature ventricular complexes Otherwise normal ECG When compared with ECG of 20-MAR-2005 20:48, Premature ventricular complexes are now Present Referred By: Rita Lopez Electronically Signed By:HAFSA BETTENCOURT
== END ==
LOC: HO.CARD 09:47
PROVIDERS: PCP Internal Medicine; Visit Provider Nurse Practitioner
DX: I49.9 Cardiac arrhythmia, unspecified (principal)
CPT/HCPCS: 93005; 99212

== ENCOUNTER 2024-01-23 15:43 | Outpatient (AMB) | payer MEDICARE, MEDICAID, SELFPAY ==
[2024-01-23 15:31] VITALS: BP 140/82; PULSE 93; O2SAT 98; BMI 36.5
--- NOTE | 2024-01-23 15:34 | MHC.PC.OV ---
Vital Signs 01/23/24 15:31 Height 6 ft Weight 269 lb 6 oz BMI 36.5 BP 140/82 H Blood Pressure Location Lt brachial Position Sitting Pulse 93 Pulse Source Pulse Oximeter Pulse Oximetry (%) 98 Oxygen Delivery Method Room Air Intake Visit Reasons: 3 Month Follow Up Allergies cefaclor Allergy (Unknown, Verified 01/23/24 15:34) Unknown Erythromycin Allergy (Unknown, Verified 01/23/24 15:34) Unknown Penicillins [PENICILLINS] Allergy (Unknown, Verified 01/23/24 15:34) UNKNOWN simvastatin [Zocor] Allergy (Unknown, Verified 01/23/24 15:34) Unknown Tobacco use date assessed: 01/23/24 Dental Screening Dental Screen Date: 01/23/24 Did you have a dental visit in the last 12 months?: Yes Did you have a dental problem in the last 6 months where you did not have access to dental care?: No Was dental information given to patient?: Patient has dentist HPI 3 Month Follow Up HPI Details 48-year-old obese male with obstructive sleep apnea hypercholesterolemia impulse control disorder impaired glucose tolerance last seen in 10/01/2023. Patient is here for follow-up colonoscopy planned for 04/02/2024.. Review of the notes ER note January for left-sided facial droop. Diagnosis of Bartholomew's palsy patient had a CT scan done negative patient was prescribed valacyclovir and prednisone. [facility] Medical History Colon cancer screening Annual physical exam Screening for colon cancer Medicare annual wellness visit, initial Medicare annual wellness visit, subsequent Impacted cerumen of both ears Rash Impaired glucose tolerance Mental and behavioral problem Impulse control disorder Hypercholesterolemia Obesity (BMI 30-39.9) Obstructive sleep apnea Anemia Vitamin B12 deficiency Anxiety Surgical History History of surgery on lower extremity History of eye surgery Family History Father Past heart attack Mother Breast cancer Paternal Grandfather CVD (cardiovascular disease) Myocardial infarction Paternal Uncle Myocardial infarction CVD (cardiovascular disease) Social History Housing: Apartment Alcohol intake: never Patient Tobacco Use Status: Former Tobacco user Tobacco use type: Cigarette e-Cigarette/Vaping Use: Never Used Second Hand Smoke Exposure: No service: No Current occupational status: disabled Cognitive needs: Yes Hearing needs: No Vision needs: Yes Questionnaire PHQ-9 Over the last 2 weeks, how often have you been bothered by any of the following problems? 1. Little interest or pleasure in doing things: not at all 2. Feeling down, depressed, or hopeless: not at all 3. Trouble falling or staying asleep, or sleeping too much: not at all 4. Feeling tired or having little energy: not at all 5. Poor appetite or overeating: not at all 6. Feeling bad about yourself - or that you are a failure or have let yourself or your family down: not at all 7. Trouble concentrating on things, such as reading the newspaper or watching television: not at all 8. Moving or speaking so slowly that other people could have noticed. Or the opposite - being so fidgety or restless that you have been moving around a lot more than usual: not at all 9. Thoughts that you would be better off or of hurting yourself in some way: not at all Total score: 0 Depression Screening Interpretation: Negative Depression Screening Done: Yes 45040 - PHQ-9 Billing: Yes Source: Developed by Drs. Lester Mora, Ayana Mead, Trace Lomeli and colleagues, with an educational rekha from [employer]. Thrive Questionnaire Date Thrive assessed: 01/23/24 I am a: Patient What is your living situation today?: I have a steady place to live Within the past 12 months, did the food you bought not last and you didn't have the money to get more?: Never true Within the past 12 months, did you worry whether your food would run out before you got money to buy more?: Never true Do you have trouble paying for medicines?: No Do you have trouble getting transportation to medical appointments?: No Do you have trouble paying your heating and electricity bill?: No Do you have trouble taking care of your child, family member or friend?: No Do you have trouble with day-to-day activities such as bathing, preparing meals, shopping, managing finances, etc.?: No Are you currently unemployed and looking for a job?: No Are you interested in more education?: No Please select the resources that you would like help with: None THRIVE Score: 0 AUDIT C Alcohol Use Questionnaire (AUDIT-C) 1. How often do you have a drink containing alcohol?: Never 3. How often do you have six or more drinks on one occasion?: Never Total Score: 0 Score Reviewed/Action Taken: No FELIBERTO-7 AMB Questionnaire FELIBERTO-7 Date FELIBERTO - 7 assessed: 04/25/23 Feeling nervous, anxious, or on edge: 0 = Not at all Not being able to stop or control worryin = Not at all Worrying too much about different things: 0 = Not at all Trouble relaxin = Not at all Being so restless that it is hard to sit still: 0 = Not at all Becoming easily annoyed or irritable: 0 = Not at all Feeling afraid as if something awful might happen: 0 = Not at all Total FELIBERTO-7 score (0-4 normal; 5-9 mild; 10-14 moderate; 15-21 severe): 0 Source: Developed by Drs. Lester Mora, Ayana Mead, Trace Lomeli and colleagues, with an educational rekha from [employer]. Physical exam (Primary Care) Vital Signs: Last Vital Signs Pulse 93 01/23/24 15:31 BP 140/82 H 01/23/24 15:31 Pulse Ox 98 01/23/24 15:31 Oxygen Delivery Method Room Air 01/23/24 15:31 Care Plan Goal for BP management: L side facial weakness with loss of nasloabial fold L cannot close L eyelid, no forehead muscle crimping BMI result Body Mass Index 36.5 Tobacco/Smoking Status: Tobacco use Status Tobacco use date assessed 01/23/24 01/23/24 15:37 Patient Tobacco Use Status Former Tobacco user 01/23/24 15:37 Tobacco use type Cigarette 01/23/24 15:37 e-Cigarette/Vaping Use Never Used 01/23/24 15:37 PHQ-9: PHQ-9 Score PHQ-9: Total score 0 01/23/24 15:57 Depression Screening Interpretation: Negative Thrive Assessment: Date of Thrive Assessment Date Thrive assessed 01/23/24 01/23/24 15:37 Const Other: L sided paralysis of the nasolabial fold with left eyelid not closing General: alert; No acute distress Eyes Conjunctivae: conjunctivae normal Resp Auscultation: clear to auscultation bilaterally Cardio Rate: regular rate Rhythm: regular rhythm GI Inspection: Yes normal to inspection Extrem General: Yes normal to inspection and No edema Office Procedures Flu Questionnaire Does the patient have a severe egg allergy?: No Does the patient have severe life threatening allergies?: No Does the patient have a fever or illness today?: No Has the patient ever had Guillain-[place] Syndrome?: No Has the patient ever had any past reaction to a flu shot?: No Immunizations Fluarix Triv [id number] (PF) 45 mcg (15 mcg x 3)/0.5 mL IM syringe Performing Provider: Mckayla Gutierrez MD [facility] [place] [facility] Administered by: Shanita Ho CMA on 01/23/24 16:15 Dose Route Admin Location Dispensed Lot Number Expiration Date [employer] Coordinator 0.5 mL IM Left Tricep 0.5 mL [id number] 09/10/24 [id number] [employer] VIS Given Date VIS Provided VIS Publication Date 01/23/24 Single Vaccine 20 Eligibility Eligibility Date Funding Source Not [facility] Eligible 01/23/24 Private Coding Level of Care Code Est Pt Level 4 (26344) Diagnoses Obesity (BMI 30-39.9) E66.9 Obstructive sleep apnea G47.33 Impulse control disorder F63.9 Hypercholesterolemia E78.00 Impaired glucose tolerance R73.02 Bartholomew's palsy G51.0 Additional Codes PHQ-9 - 62406 - PHQ-9 Billing: Yes ([id number]) Assessment & Plan Assessment & Plan (1) Obesity (BMI 30-39.9): Code(s): E66.9 - Obesity, unspecified Category: Medical Plan: Diet and exercise (2) Obstructive sleep apnea: Comment: On the CPAP uses > 4 hours and benefits patient Code(s): G47.33 - Obstructive sleep apnea (adult) (pediatric) Category: Medical Plan: Continue to use the CPAP more than 4 hours a night and benefits from this (3) Impulse control disorder: Code(s): F63.9 - Impulse disorder, unspecified Category: Medical Plan: Continue follow-up with psychiatry (4) Hypercholesterolemia: Code(s): E78.00 - Pure hypercholesterolemia, unspecified Category: Medical Plan: Avoid fried foods, chicken skin, eggs, butter margarine, pastries and meat. Be it pork or beef they have a lot of cholesterol. LDL goal of less than 130 and triglyceride of less than 150 (5) Impaired glucose tolerance: Code(s): R73.02 - Impaired glucose tolerance (oral) Category: Medical Plan: Decrease the amount of carbohydrate intake, pasta, bread, rice and potatoes are all sugar and that is aside from all the sweet stuff, remember that fruits are good but they are Sweet also. (6) Bartholomew's palsy: Code(s): G51.0 - Bartholomew's palsy Category: Medical Plan: Patient has been placed on valacyclovir and prednisone. Orders: Orders Influenza [id number] Immunization Today Z23 - Encounter for immunization Medications: New carboxymethylcellulose sodium 1% (Artificial Tears (carboxymethylcellulose)) left eye 1 drp ophthalmic (eye) TID 15 mL 1RF G51.0 - Bartholomew's palsy Fluarix Triv [id number] (PF) (flu vacc [id number] 6mos up(PF)) 0.5 mL IM ONCE 0.5 mL 0RF NS Z23 - Encounter for immunization Refilled fluticasone propionate 50 mcg/actuation administer into each nostril 1 spray intranasal DAILY 15.8 mL 6RF R73.02 - Impaired glucose tolerance (oral) dextromethorphan polistirex ER (Delsym 12 hour) 10 mL PO Q12H PRN 89 mL 0RF cough G51.0 - Bartholomew's palsy
== END 2024-01-23 16:18 | disposition home or self-care (01) ==
PROVIDERS: PCP Internal Medicine; Visit Provider Internal Medicine
DX: R73.02 Impaired glucose tolerance (oral) (principal); F63.9 Impulse disorder, unspecified; E66.9 Obesity, unspecified; Z68.36 Body mass index [BMI] 36.0-36.9, adult; G47.33 Obstructive sleep apnea (adult) (pediatric); E78.00 Pure hypercholesterolemia, unspecified; G51.0 Bell's palsy

== ENCOUNTER → 2024-01-23 15:44 | Outpatient (BNVA) | payer MEDICARE, MEDICAID, SELFPAY | PROVIDERS: PCP Internal Medicine; Visit Provider Internal Medicine | DX: Z23 Encounter for immunization (principal); E66.9 Obesity, unspecified; G47.33 Obstructive sleep apnea (adult) (pediatric); F63.9 Impulse disorder, unspecified; E78.00 Pure hypercholesterolemia, unspecified; R73.02 Impaired glucose tolerance (oral); G51.0 Bell's palsy | CPT/HCPCS: 90471; 90656; 96127; 99212 ==

== ENCOUNTER 2024-03-27 08:51 | Day surgery (SDC) | payer MEDICARE, MEDICAID, SELFPAY ==
--- OUTSIDE RECORDS SUMMARY | 2024-03-26 18:47 | XMS_ITS | Clinical Summary ---
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 PHARMACOLOGIC AND NONPHARMACOLOGIC PAIN CONTROL MEASURES AND PATIENT WILL HAVE IMPROVEMENT IN PAIN INTERFERING WITH ACTIVITY EVIDENCED BY PAIN CONTROLLED AT LEVEL OF 7 OR LESS BY END OF CERTIFICATION PERIOD. Goal Provider Goal - OCCUPATIONAL THERAPY EVALUATION TO BE COMPLETED WITH RECOMMENDATIONS AND WRITTEN PLAN OF TREATMENT ESTABLISHED FOR THE PHYSICIANS SIGNATURE. Goal Provider Goal - PATIENT/CAREGIVER WILL VERBALIZE/DEMONSTRATE MANAGEMENT OF RESPIRATORY DISEASE PROCESS. CHANGES IN RESPIRATORY STATUS WILL BE IDENTIFIED AND REPORTED TO PHYSICIAN FOR PROMPT INTERVENTION THROUGHOUT THE CERTIFICATION PERIOD. Goal Provider Goal - WOUND CARE WILL BE COMPLETED AND PATIENT WILL HAVE IMPROVED WOUND STATUS EVIDENCED BY NO SIGNS AND SYMPTOMS OF INFECTION, DECREASED WOUND SIZE, AND/OR NO COMPLICATIONS BY THE END OF THE CERTIFICATION PERIOD. Goal Provider Goal - PATIENT/CAREGIVER WILL VERBALIZE/DEMONSTRATE ABILITY TO MANAGE MUSCULOSKELETAL DISEASE WHILE MAINTAINING SAFETY BY END OF CERT PERIOD Goal Provider Goal - CHANGES IN NEUROLOGIC STATUS WILL BE IDENTIFIED AND REPORTED TO THE PHYSICIAN FOR PROMPT INTERVENTION OF ASSOCIATED RISK. PATIENT/CAREGIVER WILL VERBALIZE/DEMONSTRATE APPROPRIATE SAFETY MEASURES TO PREVENT INJURY BY THE END OF THE CERTIFICATION PERIOD. Goal Provider Goal - PATIENT/CAREGIVER WILL VERBALIZE UNDERSTANDING OF PRESSURE ULCER PREVENTION BY END OF EPISODE Goal Provider Goal - A PHYSICAL THERAPY EVALUATION TO BE COMPLETED WITH RECOMMENDATIONS AND/OR WRITTEN PLAN OF TREATMENT ESTABLISHED FOR PHYSICIANS SIGNATURE. Goal Provider Goal - PATIENT/CAREGIVER WILL VERBALIZE SIGNS AND SYMPTOMS OF HYPERTENSION AND WILL BE ABLE TO DEMONSTRATE ABILITY TO MANAGE EXACERBATION BY END OF CERT PERIOD Goal Provider Goal - PATIENT/CAREGIVER WILL UTILIZE VIRTUAL VISITS TO ACHIEVE GOALS OUTLINED ON THE PLAN OF CARE. PATIENT WILL HAVE SUPPORT MEASURES ESTABLISHED TO PREVENT REHOSPITALIZATION AND PATIENT/CAREGIVER WILL VERBALIZE/DEMONSTRATE METHODS TO REDUCE AVOIDABLE HOSPITALIZATION. Goal Provider Goal - NONE Goal Provider Goal - PHYSICAL THERAPY EVALUATION TO BE COMPLETED WITH RECOMMENDATIONS AND/OR WRITTEN TREATMENT PLAN OF CARE ESTABLISHED FOR THE PHYSICIANS CAROLINE PATIENT/CAREGIVER WILL PERFORM THERAPEUTIC EXERCISE/S AND DEMONSTRATE PARTICIPATION IN A HOME PROGRAM TO IMPROVE FUNCTION OF R LE PATIENT/CAREGIVER WILL DEMONSTRATE SAFE TRANSFERS USING LEAST RESTRICTIVE ASSISTIVE DEVICE BODY MECHANICS AND EQUIPMENT TO IMPROVE FUNCTION OF R LE WITH TRANSFERS PATIENT/CAREGIVER WILL DEMONSTRATE IMPROVED GAIT TECHNIQUES TO MINIMIZE RISK OF INJURY AND INCREASE FUNCTION OF PATIENT WITH HOUSEHOLD AND COMMUNITY AMBULATION Reason for Visit INDEPENDENT IN THE HOME Encounters Start Date/Time End Date/Time Encounter Type Admission Type Attending [facility] Care Department Encounter ID Discharge Date Discharge Status Discharge Condition Discharge Reason Percent Goals Met 2022-01-30 00:00:00 2022-03-26 00:00:00 Outpatient NEW ADMISSION LAURE LLANOS [facility] [id number] 3026-01-13 00:00:00 DISCHARGE TO HOME OR SELF CARE INDEPENDEN T IN THE HOME GOALS MET ( ONLY) 100.00
--- OUTSIDE RECORDS SUMMARY | 2024-03-27 09:19 | XMS_ITS | Clinical Summary ---
Author Organization Unknown Care Team Providers Care Japanese Tutor Name Role Phone ANGIE MARTINEZ, SIM Unavailable Unavailable VANI THERAPEUTIC CONSULTANT, VISHAL Unavailable Unavail able ROMI RN, LAURE Unavailable Unavailable WENDY BRADY THERAPEUTIC CONSULTANT, ARCELIA Unavailable Unavail able JACIEL ([facility]) [facility] - PT, KRISTA Unavailable U navailable KALETINA THERAPEUTIC CONSULTANT, CHRISTA Unavailable Unavailab le Payers Payer Name Policy Type Policy Number Effective Date Expira tion Date MEDICARE - [facility] [place] - PD [id number] MEDICAID [facility] [id number] Problems Condition Name Condition Details Condition Category [...] HYPERLIPIDEM IA, UNSPECIFIED Active 2021-03 00:00: 00 [facility] (CURRENT) USE OF 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) USE OF ANTICOAGULAN TS Active 2021-03 [...] 100 mg tablet 2021-03 00:00: 00 Yes [id number] 1 tablet 2 TIMES DAILY 1 tablet 2 TIMES DAILY (route: oral) Med Classific ation: Gout and Hyperuric emia Therapy bupropion HCl SR 150 mg tablet,12 hr sustained-r elease 2021-03 00:00: 00 Yes [id number] 1 tablet DAILY 1 tablet DAILY (route: oral) Med Classific ation: Central Nervous System Agents fenofibrate nanocrystal lized 145 mg tablet 2021-03 00:00: 00 01-30 00:00 :00 No [id number] Per instruc tions Per instructio ns (route: oral) Med Classific ation: Cardiovas cular Therapy Agents folic acid 1 mg tablet 2021-03 00:00: 00 Yes [id number] 1 tablet DAILY 1 tablet DAILY (route: oral) Med Classific ation: Electroly te Balance-N utritiona l Products multivitami n tablet 2021-03 00:00: 00 Yes [id number] 1 tablet DAILY 1 tablet DAILY (route: oral) Med Classific ation: Electroly te Balance-N utritiona l Products risperidone 1 mg tablet 2021-03 00:00: 00 Yes [id number] 1 tablet EVERY PM 1 tablet EVERY PM (route: oral) Med Classific ation: Central Nervous System Agents cyanocobala min (vit B-12) 1,000 mcg tablet 2021-03 00:00: 00 Yes [id number] 1 tablet DAILY 1 tablet DAILY (route: oral) Med Classific ation: Electroly te Balance-N utritiona l Products cholecalcif larisa (vitamin D3) 25 mcg (1,000 unit) tablet 2021-03 00:00: 00 Yes [id number] 1 tablet DAILY 1 tablet DAILY (route: oral) Med Classific ation: Electroly te Balance-N utritiona l Products fluticasone propionate 50 mcg/actuati on nasal spray,suspe nsion 2021-03 015 00:00: 00 Yes [id number] 1 spray DAILY 1 spray DAILY (route: nasal) Med Classific ation: Respirato ry Therapy Agents Lovenox 100 mg/mL subcutaneou s syringe 2021-03 00:00: 00 Yes [id number] 1 mL DAILY 1 mL ALL Y [...] SUMMARIZE SKILLED NEED: IT'S GOT TO BE LONGTERM TO HELP MANAGE MEDICATIONS CHRONIC DISEASE ADDITIONAL [...] SUMMARIZE SKILLED NEED: IT'S GOT TO BE LONGTERM TO HELP MANAGE MEDICATIONS CHRONIC DISEASE ADDITIONAL [...] PRN VIRTUAL VISITS MAY BE PERFORMED UTILIZING [employer] SYSTEM TO OPTIMIZE SKILLED SERVICES FURNISHED ON [...] CARE WILL BE ESTABLISHED THAT MEETS PATIENT'S LONGTERM NEEDS AND INCLUDES PATIENT GOAL FOR HOME [...] End Date/Time Encounter Type Admission Type Attending [facility] Care Department Encounter ID Discharge Date Discharge Status Discharge Condition Discharge Reason Percent Goals Met 2022-01-30 00:00:00 2022-03-26 00:00:00 Outpatient NEW ADMISSION LAURE LLANOS [facility] [id number] 9826-01-13 00:00:00 DISCHARGE TO HOME OR SELF CARE INDEPENDEN T IN THE HOME GOALS MET ( ONLY) 100.00
--- NOTE | 2024-03-27 10:16 | P.HPSUR_ITS ---
Pre-Procedural Eval Section A - 24 Hr Update-Section A only Date of Service: 03/27/24 Section B - Complete if H&P > 30 days Chief Complaint: Encounter for screening for malignant neoplasm of Relevant Family History (Specify if Yes): No Relevant Social History: None Present Medications: see Short Stay Collaborative assessment Medical History: Significant History (Obesity YONY Impulse control disorder High cholesterol History of right tib-fib fracture Impaired glucose tolerance Anxiety) History of Previous Operations: Relevant previous surgery/procedure and date(s) (Right fracture repair tib fib Left eye surgery) Allergies: Allergies Allergy/AdvReac Type Severity Reaction Status Date / Time cefaclor Allergy Unknown Unknown Verified 01/23/24 15:34 Erythromycin Allergy Unknown Unknown Verified 01/23/24 15:34 Penicillins [PENICILLINS] Allergy Unknown UNKNOWN Verified 01/23/24 15:34 simvastatin [Zocor] Allergy Unknown Unknown Verified 01/23/24 15:34 Review of Systems Sugical H&P ROS: Negative: Constitution, Cardiovascular, Respiratory, Neurologi dawna, Psychiatric, Hem-Onc, Allergic/Immunologic, Gastrointestinal, Genitourinary, Musculoskeletal, Integumentary, Endocrine and Eyes/Ears/Nose/Throat Exam Surgical H&P Exam: Normal: HEENT, Normal: Heart, Normal: Lungs, Normal: Extremities, Normal: Abdomen and Normal: Skin and Significant Findings: Neurological (facial palsy) Plan Diagnosis/Plan: Unchanged I have reviewed the history and physical and performed a pertinent physical examination on my patient. No changes have occurred unless specified. Time Spent With Patient Time: Total time managing care of this patient today ____ minutes.
[2024-03-27 10:23] VITALS: BMI 36.5
[2024-03-27 10:30] VITALS: BP 143/79; PULSE 73; RESP 16; TEMP 37; O2SAT 98
--- NOTE | 2024-03-27 10:49 | HO.ANESPROP2 ---
[facility] Active Problems Active Problems: All Active Problems Bartholomew's palsy (Acute) Asymptomatic PVCs (Acute) Regularly irregular pulse rhythym (Acute) Pre-op examination (Acute) Allergic contact dermatitis (Acute) Contact dermatitis (Acute) Onychomycosis (Acute) Impacted cerumen of both ears (Acute) Fracture of right tibia and fibula (Acute) Rash (Acute) Impaired glucose tolerance (Acute) Mental and behavioral problem (Acute) Impulse control disorder (Acute) Hypercholesterolemia (Acute) Obesity (BMI 30-39.9) (Acute) Obstructive sleep apnea (Acute) Anemia (Acute) Anxiety (Acute) Past Medical History Medical History Colon cancer screening Annual physical exam Screening for colon cancer Medicare annual wellness visit, initial Medicare annual wellness visit, subsequent Impacted cerumen of both ears Rash Impaired glucose tolerance Mental and behavioral problem Impulse control disorder Hypercholesterolemia Obesity (BMI 30-39.9) Obstructive sleep apnea Anemia Vitamin B12 deficiency Anxiety Family History Family History Father Past heart attack Mother Breast cancer Paternal Grandfather CVD (cardiovascular disease) Myocardial infarction Paternal Uncle Myocardial infarction CVD (cardiovascular disease) Family history of problems with anesthesia: No Surgical History Surgical History History of surgery on lower extremity History of eye surgery History of Problems with Anesthesia: No Social History Social History Housing: Apartment Alcohol intake: never Patient Tobacco Use Status: Former Tobacco user Tobacco use type: Cigarette e-Cigarette/Vaping Use: Never Used Second Hand Smoke Exposure: No Use of substances other than those prescribed or required for medical reasons: No Are you DNR?: No Advance Directives: No Advance Directives Information Provided: Yes service: No Current occupational status: disabled Cognitive needs: Yes Hearing needs: No Vision needs: Yes Meds Allergies Allergy/AdvReac Type Severity Reaction Status Date / Time cefaclor Allergy Unknown Unknown Verified 03/27/24 10:22 Erythromycin Allergy Unknown Unknown Verified 03/27/24 10:22 Penicillins [PENICILLINS] Allergy Unknown UNKNOWN Verified 03/27/24 10:22 simvastatin [Zocor] Allergy Unknown Unknown Verified 03/27/24 10:22 Home Medications ?Medication ?Instructions ?Recorded ?Confirmed ?Last Taken ?Type CPAP 10/27/20 05/23/23 Unknown History melatonin 3 mg tablet 3 mg PO BEDTIME 02/08/22 05/23/23 Unknown History risperidone 1 mg tablet 1.5 mg PO BEDTIME 05/18/22 05/23/23 Unknown History risperidone 0.5 mg tablet 0.5 mg PO BEDTIME 01/14/23 05/23/23 Unknown History (Risperdal) Exam Height,Weight and Vital Signs: Height 6 ft Weight 122.016 kg Last Vital Signs Temp 98.6 F 03/27/24 10:30 Pulse 73 03/27/24 10:30 Resp 16 03/27/24 10:30 BP 143/79 H 03/27/24 10:30 Pulse Ox 98 03/27/24 10:30 O2 Del Method Room Air 03/27/24 10:30 Airway Mallampati Class: III TM Dist: >3cm Neck ROM: Full Assessment and Plan Assessment Anesthesia Assessment: Anesthesia Plan Discussed and Chart Reviewed Final Anesthetic Review Family History of Problems with Anesthesia: No History of Problems with Anesthesia: No NPO: Yes ASA Class: III Final Preanesthetic Review: No Changes in Pt Med Stat, Meds/Allgs Chart Reviewed, Consent Obtained/Reviewed and Anes Risks/Benef Reviewed Patient Risk: Intermediate Procedure Risk: Low Anesthetic Plan Anesthetic Plan: TIVA Disposition: Standard PACU
--- NOTE | 2024-03-27 11:28 | HO.OPN-COLON ---
Colonoscopy Operative Note Operative Note Date of Service: 03/27/24 Narrative: Operative Information Procedure Description: Colonoscopy Indication: screening Anesthesia: MAC COLONOSCOPY Instrument: Olympus variable stiffness adult scope 190L Colonoscopy Monitoring: Vital signs and clinical assessment, continuous EKG monitoring, Pulse oximetry, Carbon Dioxide monitoring and blood pressure monitoring were done throughout the procedure. Colon withdrawal time was 12 minutes. Procedure: The patient was placed in the left lateral decubitis position and pre-procedure medications were administered. After a digital rectal examination of the ano-rectum, the video colonoscope was inserted into the rectum and advanced through the colon to the cecum/TI. The colonoscope was slowly withdrawn in a retrograde panoramic fashion and the colon mucosa was carefully examined including a retroflexed view of the rectum. Findings and interventions are described below. Procedure Difficulty: easy Findings: Terminal Ileum-normal Cecum:normal Ascending Colon: mild diverticulosis Transverse Colon -normal Descending Colon: 6-8 mm sessile polyp removed with cold snare Sigmoid Colon: mild diverticulosis Rectum: Retroflexion with small internal hemorrhoids seen, grade I Anorectum - normal Intervention: cold snare Colon preparation: [place] Bowel Preparation Scale Right colon; 2 Transverse colon: 2 Left colon; 2 (0 = Unprepared colon segment with mucosa not seen due to solid stool that cannot be cleared. 1 = Portion of mucosa of the colon segment seen, but other areas of the colon segment not well seen due to staining, residual stool and/or opaque liquid. 2 = Minor amount of residual staining, small fragments of stool and/or opaque liquid, but mucosa of colon segment seen well. 3 = Entire mucosa of colon segment seen well with no residual staining, small fragments of stool or opaque liquid) Impression and Post Procedure Diagnosis: diverticulosis colon polyp internal hemorrhoids Plan: High fiber diet leaflet Avoid straining at stool, epsom salts and sitz bath, anusol supps or cream Repeat Colonoscopy in 5 years due to polyp or earlier if clinically indicated Above findings were reviewed with the patient and relevant handouts were provided if indicated.
[2024-03-27 11:35] VITALS: BP 117/73; PULSE 74; RESP 15; TEMP 36.8; O2SAT 95
[2024-03-27 11:46] VITALS: BP 121/79; PULSE 71; RESP 15; TEMP 36.8; O2SAT 95
[2024-03-27 11:48] VITALS: BP 121/79; PULSE 71; RESP 16; TEMP 36.8; O2SAT 95
== END 2024-03-27 12:29 | disposition home or self-care (01) ==
PROVIDERS: PCP Internal Medicine; Visit Provider Internal Medicine Gastroenterology
PROC: 0DJD8ZZ Inspection of Lower Intestinal Tract, Via Natural or Artificial Opening Endoscopic (ICD-10-PCS; CPT 45378; principal; 2024-03-27 11:50)
DX: Z12.11 Encounter for screening for malignant neoplasm of colon (principal); D12.4 Benign neoplasm of descending colon; K57.30 Diverticulosis of large intestine without perforation or abscess without bleeding; K64.0 First degree hemorrhoids; R73.02 Impaired glucose tolerance (oral); E78.00 Pure hypercholesterolemia, unspecified; I49.9 Cardiac arrhythmia, unspecified; F63.9 Impulse disorder, unspecified; F41.9 Anxiety disorder, unspecified; G47.33 Obstructive sleep apnea (adult) (pediatric); E53.8 Deficiency of other specified B group vitamins; E66.9 Obesity, unspecified; Z68.35 Body mass index [BMI] 35.0-35.9, adult; Z79.899 Other long term (current) drug therapy; Z99.89 Dependence on other enabling machines and devices; Z88.0 Allergy status to penicillin; Z88.1 Allergy status to other antibiotic agents; Z88.8 Allergy status to other drugs, medicaments and biological substances; Z98.890 Other specified postprocedural states; Z87.891 Personal history of nicotine dependence
CPT/HCPCS: 45385; 88305; J2003; J2704

== ENCOUNTER → 2024-03-27 08:51 | Outpatient (BNV) | payer MEDICARE, MEDICAID, SELFPAY | PROVIDERS: PCP Internal Medicine; Visit Provider Internal Medicine Gastroenterology | DX: Z12.11 Encounter for screening for malignant neoplasm of colon (principal); D12.4 Benign neoplasm of descending colon; K57.90 Diverticulosis of intestine, part unspecified, without perforation or abscess without bleeding; K64.0 First degree hemorrhoids | CPT/HCPCS: 45385 ==

== ENCOUNTER 2024-05-29 14:53 | Outpatient (AMB) | payer MEDICARE, MEDICAID, SELFPAY ==
[2024-05-29 15:01] VITALS: BP 138/72; PULSE 69; O2SAT 97; BMI 38.4
--- NOTE | 2024-05-29 15:01 | A.OFFVIS_ITS ---
Intake Vital Signs 05/29/24 15:01 Height 6 ft Weight 283 lb BMI 38.4 BP 138/72 Blood Pressure Location Lt brachial Position Sitting Pulse 69 Pulse Source Pulse Oximeter Pulse Oximetry (%) 97 Oxygen Delivery Method Room Air Intake Visit Reasons: V G0439 Allergies cefaclor Allergy (Unknown, Verified 05/29/24 15:16) Unknown Erythromycin Allergy (Unknown, Verified 05/29/24 15:16) Unknown Penicillins [PENICILLINS] Allergy (Unknown, Verified 05/29/24 15:16) UNKNOWN simvastatin [Zocor] Allergy (Unknown, Verified 05/29/24 15:16) Unknown Medication List - Last Reconciled 05/29/24 by Mckayla Gutierrez MD acetaminophen (Tylenol Extra Strength) 1,000 mg (2 x 500 mg) PO TID PRN 30 days allopurinol 100 mg PO BID 28 days bisacodyl (Dulcolax (bisacodyl)) 10 mg (2 x 5 mg) PO BEDTIME 2 days bupropion HCl SR 150 mg PO DAILY carboxymethylcellulose sodium 1% (Artificial Tears (carboxymethylcellulose)) 1 drp ophthalmic (eye) TID cholecalciferol (vitamin D3) 25 mcg (1/2 x 50 mcg (2,000 unit)) PO QAM [CPAP ] cyanocobalamin (vitamin B-12) (Vitamin B-12) 1,000 mcg PO DAILY dextromethorphan polistirex ER (Delsym 12 hour) 10 mL PO Q12H PRN fenofibrate nanocrystallized 145 mg PO BEDTIME fluticasone propionate 50 mcg/actuation 1 spray intranasal DAILY folic acid 1 mg PO DAILY multivitamin 1 tab PO DAILY peg 3350-electrolytes 236-22.74-6.74 -5.86 gram (Golytely) 240 mL PO Q10M 1 day risperidone (Risperdal) 0.5 mg PO BEDTIME risperidone 1 mg PO BEDTIME triamcinolone acetonide 0.5% 1 appl topical DAILY HPI SWV G0439 HPI Details [place] of care: Dr. Poole psychiatry gastroenterology Dr. Burrell [facility] Medical History (Updated 05/29/24 @ 15:21 by Mckayla Gutirerez MD) Medicare annual wellness visit, subsequent Colon cancer screening Annual physical exam Screening for colon cancer Medicare annual wellness visit, initial Impacted cerumen of both ears Rash Impaired glucose tolerance Mental and behavioral problem Impulse control disorder Hypercholesterolemia Obesity (BMI 30-39.9) Obstructive sleep apnea Anemia Vitamin B12 deficiency Anxiety Surgical History History of surgery on lower extremity History of eye surgery Family History Father Past heart attack Mother Breast cancer Paternal Grandfather CVD (cardiovascular disease) Myocardial infarction Paternal Uncle Myocardial infarction CVD (cardiovascular disease) Social History Housing: Apartment Alcohol intake: never Patient Tobacco Use Status: Former Tobacco user Tobacco use type: Cigarette e-Cigarette/Vaping Use: Never Used Second Hand Smoke Exposure: No service: No Current occupational status: disabled Cognitive needs: Yes Hearing needs: No Vision needs: Yes Questionnaire Medicare Wellness Checkup What gender do you identify with?: male During the past 4 weeks, how much have you been bothered by emotional problems such as feeling anxious, depressed, irritable, sad or downhearted, and blue?: not at all During the past 4 weeks, has your physical & emotional health limited your social activities with family, friends, neighbors, or groups?: slightly During the past 4 weeks, how much bodily pain have you generally had?: very mild pain During the past 4 weeks, was someone available to help you if you needed & wanted help?: no, not at all During the past 4 weeks, what was the hardest physical activity you could do for at least 2 minutes?: light Can you get to places out of walking distance without help? (For eg., can you travel alone on buses, taxis or drive your car?): No Can you go shopping for groceries or clothes without someone's help?: No Can you prepare your own meals?: Yes Can you do your housework without help?: Yes Because of any health problems, do you need the help of another person with your personal care needs such as eating, bathing, dressing or getting around the house?: No Can you handle your own money without help?: Yes During the past 4 weeks, how would you rate your health in general?: excellent During the past 4 weeks how have things been going for you?: pretty well Are you having difficulties driving your car?: no Do you always fasten your seat belt when you are in a car?: yes, usually During past 4 weeks, have you been bothered by the following: never: Falling or dizzy when standing up, Sexual problems?, Trouble eating well?, Teeth or denture problems?, Problems using the telephone? and Tiredness or fatigue? Have you fallen 2 or more times in the past year?: No Are you afraid of falling?: No Are you a smoker?: no During the past 4 weeks, how many drinks of wine, beer, or other alcoholic beverages did you have?: no alcohol at all Do you exercise for about 20 minutes 3 or more times a week?: yes, some of the time Have you been given information to help with the following?: yes: Keeping track of your medications? and no: Hazards in your house that might hurt you? How often do you have trouble taking medicines the way you have been told to take them?: I seldom take medications as prescribed How confident are you that you can control & manage most of your health problems?: I do not have any health problems What is your race?: White PHQ-9 Over the last 2 weeks, how often have you been bothered by any of the following problems? 1. Little interest or pleasure in doing things: not at all 2. Feeling down, depressed, or hopeless: not at all 3. Trouble falling or staying asleep, or sleeping too much: not at all 4. Feeling tired or having little energy: not at all 5. Poor appetite or overeating: not at all 6. Feeling bad about yourself - or that you are a failure or have let yourself or your family down: not at all 7. Trouble concentrating on things, such as reading the newspaper or watching television: not at all 8. Moving or speaking so slowly that other people could have noticed. Or the opposite - being so fidgety or restless that you have been moving around a lot more than usual: not at all 9. Thoughts that you would be better off or of hurting yourself in some way: not at all Total score: 0 Depression Screening Interpretation: Negative Depression Screening Done: Yes 05930 - PHQ-9 Billing: Yes Source: Developed by Drs. Lester Mora, Ayana Mead, Trace Lomeli and colleagues, with an educational rekha from [employer]. Review of Systems Const Denies poor appetite and Denies weakness Eyes Denies no additional complaints ENT Reports Normal hearing present, Denies dizziness, Denies nasal congestion, Denies tinnitus and Denies sore throat Card Denies chest pain, Denies syncope, Denies rapid heart rate and Denies dyspnea Resp Denies cough and Denies dyspnea GI Denies change in stool character, Reports constipation, Denies diarrhea, Denies nausea and Denies vomiting Denies dysuria and Denies urinary frequency Neuro Reports Normal hearing present, Denies confusion, Denies dizziness, Denies syncope and Denies weakness Psych Denies confusion Physical Exam Vital Signs: Oxygen Delivery Method Room Air 05/29/24 15:01 Const General: No confusion Orientation/consciousness: No confusion HEENT Other: Left lower half facial assymetry L eyelid cannot close, L nsaolabila fold shallow, sagging L cheek Head: Yes normocephalic Ears: external ears normal and TM's normal bilaterally Face and sinus: Yes normal facial exam Mouth: moist mucous membranes Throat: Yes tonsils normal Eyes Conjunctivae: conjunctivae normal Pupils: Equal, round and reactive pupils present and Pupil accommodation reflex normal Direct Ophthalmoscopy: normal light reflex Neck Neck: No lymphadenopathy Thyroid: Thyroid normal Chest Chest palpation & inspection: normal inspection of the chest Resp Effort & Inspection: normal respiratory effort and no audible wheezes Auscultation: clear to auscultation bilaterally, no crackles, no wheezes and lung sounds not diminished Cardio Rate: regular rate Rhythm: regular rhythm Peripheral pulses: radial pulses present and dorsalis pedis present GI Palpation (GI): no masses Auscultation: normal bowel sounds and normoactive bowel sounds Rectal Exam - Male: Yes deferred Skin General skin exam: no rashes or lesions noted Rashes: no rashes Neuro General: No confusion Cranial nerves: Yes Equal, round and reactive pupils present and Yes Normal hearing present Cognition (Neuro): normal cognition Gait exam (Neuro): Normal gait present Motor exam (neuro): 5/5 motor strength present throughout Deep tendon reflexes (DTR's): Right brachioradialis reflex intensity grade: 2+, Left brachioradialis reflex intensity grade: 2+, Right patellar reflex intensity grade: 2+ and Left patellar reflex intensity grade: 2+ Extrem General: No edema Assessment & Plan Assessment & Plan (1) Medicare annual wellness visit, subsequent: Code(s): Z00.00 - Encounter for general adult medical examination without abnormal findings Plan: Patient is advised to eat healthy, keep well hydrated, keep active and have adequate sleep. (2) Obesity (BMI 30-39.9): Code(s): E66.9 - Obesity, unspecified Plan: Diet and exercise (3) Obstructive sleep apnea: Comment: On the CPAP uses > 4 hours and benefits patient Code(s): G47.33 - Obstructive sleep apnea (adult) (pediatric) Plan: Continue to use the CPAP more than 4 hours a night and benefits from this. (4) Anemia: Code(s): D64.9 - Anemia, unspecified Plan: Will request for blood work to follow-up on this. (5) Hypercholesterolemia: Code(s): E78.00 - Pure hypercholesterolemia, unspecified Plan: Avoid fried foods, chicken skin, eggs, butter margarine, pastries and meat. Be it pork or beef they have a lot of cholesterol LDL goal of less than 130 and triglyceride of less than 150 on fenofibrate (6) Impulse control disorder: Code(s): F63.9 - Impulse disorder, unspecified Plan: Continue with therapy. (7) Impaired glucose tolerance: Code(s): R73.02 - Impaired glucose tolerance (oral) Plan: Decrease the amount of carbohydrate intake, pasta, bread, rice and potatoes are all sugar and that is aside from all the sweet stuff, remember that fruits are good but they are Sweet also. 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 He has a current diagnosis of obstructive sleep apnea and uses CPAP therapy at night, which he has been adhering to. The patient also presents a history of obesity and hypercholesterolemia that require ongoing monitoring. An impulse control disorder has been identified in the patient's history and is being managed. Previous medical history includes an episode of Bartholomew's palsy. His last colonoscopy, performed in March 2024, identified a tubular adenoma, with a recommended follow-up in five years. Most recent laboratory work from 2022 revealed mild anemia, but other laboratory markers, including renal function, glucose, iron, liver function, cholesterol, and thyroid function tests, were reported as normal. Health Maintenance - Colonoscopy last performed in March 2024, revealing tubular adenoma; recommendation to repeat in 5 years. - Complete blood count performed in 2022, showing mild anemia. - Renal function, glucose, iron levels, liver function, cholesterol, and thyroid function were normal in 2022. - CPAP therapy for obstructive sleep apnea. - Monitoring of weight and dietary habits due to obesity and hypercholesterolemia. Social History Review of Systems Physical Exam General: Cooperative, healthy appearing, comfortable, no acute distress and well developed Orientation: Patient oriented x3 Limitations: No limitations Head: Normal to inspection Ears: Hearing grossly normal bilaterally Nose: Normal external nose present Face and sinus: Normal facial exam Eyes: Appearance normal, both eyes and all related structures Neck: Normal visual inspection and Yes full ROM Respiratory: Normal respiratory effort and able to speak in complete sentences. Clear to auscultation bilaterally Cardiovascular: Regular rate and rhythm. Normal S1 and S2 GI: Normal to inspection. Soft to palpation and nontender Skin: No rashes or lesions noted Neuro: Patient oriented x3 Extremities: Normal to inspection Results - Labs: Mild anemia identified in 2022. - Tests and Diagnostics: Tubular adenoma discovered during colonoscopy in March 2024. Plan During today's visit, we reviewed the management of the patient's chronic conditions, including continuous CPAP use for obstructive sleep apnea and recommended lifestyle changes for obesity and hypercholesterolemia. Consistent with previous recommendations, the patient is encouraged to maintain a healthy lifestyle with proper diet and regular exercise. Impulse control disorder management will continue as is, with no modifications at this time. Mild anemia detected in 2022 will be monitored, and follow-up testing may be required if there are changes in clinical status. The importance of the next colonoscopy in 2029 was reiterated following the earlier tubular adenoma discovery, emphasizing regular screenings and preventive care. Patient was informed and verbally consented to the use of an ambient scribe for clinic note documentation during this visit. Discussion Notes We discussed the patient's current health status and reviewed the management of both acute and chronic conditions. I emphasized the importance of CPAP therapy compliance for obstructive sleep apnea and maintaining lifestyle changes to manage obesity and hypercholesterolemia. We reviewed the previous colonoscopy finding of a tubular adenoma and the recommended follow-up screening. We agreed to continue the current management of impulse control disorder. Follow-up care, lifestyle modifications, and the need for any further investigations were addressed as appropriate, ensuring the patient understands the care plan and preventive strategies. Patient Instructions - Continue using CPAP as prescribed for obstructive sleep apnea. - Follow a healthy diet and engage in regular physical activity to manage weight and hypercholesterolemia. - Schedule the next colonoscopy in 2029, as advised. - Report any new symptoms or changes in health promptly. - Maintain adherence to current management for impulse control disorder. History of Present Illness The patient is a 48-year-old male presenting for weight management and evaluation of chronic conditions, including obesity and eye dryness. He has a recent weight report of 228 pounds, down from previous recordings of 269 and 283 pounds, suggesting ongoing challenges with weight maintenance. He reports ongoing eye dryness despite prior antiviral therapy, indicating the need for further ophthalmologic consultation. A known rotator cuff condition has also been addressed in past treatments. Notably, the patient carries allergies to penicillin, simvastatin, and erythromycin, impacting medication choices. Family history includes incidents of myocardial infarction and breast cancer in his parents. Recent life changes involve a move to a new location, which he describes as a positive shift in his living conditions. Health Maintenance - Tetanus vaccination: Updated in 2021 - Influenza vaccination: Completed - Discussion on dietary intake and weight management - Prevention of corneal dryness with recommended use of eye drops Social History - Has relocated to a new residence, expressing satisfaction with the change - Denies alcohol and tobacco use Review of Systems - Eyes: Reports dryness - Musculoskeletal: Reports conditions related to rotator cuff Physical Exam General: Cooperative, healthy appearing, comfortable, no acute distress and well developed Orientation: Patient oriented x3 Limitations: No limitations Head: Normal to inspection Ears: Hearing grossly normal bilaterally, some earwax present but not bad Nose: Normal external nose present Face and sinus: Normal facial exam Eyes: Appearance normal, both eyes and all related structures, concern for dryness, advised to use eye drops Neck: Normal visual inspection and Yes full ROM Respiratory: Normal respiratory effort and able to speak in complete sentences. Clear to auscultation bilaterally Cardiovascular: Regular rate and rhythm. Normal S1 and S2 GI: Normal to inspection. Soft to palpation and nontender Skin: No rashes or lesions noted Neuro: Patient oriented x3 Extremities: Normal to inspection, noted rotator cuff issue, hole in knee, able to lift legs and move shoulders without pain Results Plan I will continue to monitor the patient's weight management efforts and provide dietary and lifestyle counseling to support progress. The patient will seek ophthalmologic consultation for persistent eye dryness, with the use of prescribed eye drops in the interim. Management of his allergies mandates alternative medications. The rotator cuff condition will be evaluated with consideration of physiotherapy. Considering his family history, cardiovascular monitoring will continue to assess risk and prevention of myocardial events, maintaining this proactive approach alongside his improved housing situation. Patient was informed and verbally consented to the use of an ambient scribe for clinic note documentation during this visit. Discussion Notes During the visit, I reviewed the patient's weight management challenges, emphasizing the importance of maintaining a stable weight through balanced nutrition and regular physical activity. We explored his ongoing eye dryness, underscoring the role of artificial tear solutions and ophthalmologic follow-up. The patient's allergies to certain medications shaped the discussion around safe alternatives. I highlighted the presence of rotator cuff issues and proposed evaluating these with physical therapy considerations. Moreover, the family history of myocardial infarction shaped our dialogue on preventive c ardiovascular health management. Finally, I noted his positive adjustment to a new living environment. Patient Instructions - Continue weight management efforts with a focus on nutrition and exercise - Use prescribed eye drops regularly to manage dryness - Avoid medications containing penicillin, simvastatin, or erythromycin - Seek further evaluation for the rotator cuff condition if symptoms persist - Maintain cardiovascular health through regular check-ups - Follow up with an real estate rental agent for eye dryness concerns - Restate tetanus and influenza vaccinations are current Orders: Orders Complete Blood Count Auto Diff Today D64.9 - Anemia, unspecified Ferritin Today D64.9 - Anemia, unspecified Reticulocyte Count Today D64.9 - Anemia, unspecified IRON PROFILE Today D64.9 - Anemia, unspecified Vitamin B12 and Folate Today D64.9 - Anemia, unspecified Referrals Neurology Referral G51.0 - Bartholomew's palsy Quality Reporting (2019) Depression/Bipolar (159/160/161/177) PHQ-9: Total score: 0 Coding Level of Care Code Medicare Subsequent (G0439) Diagnoses Medicare annual wellness visit, subsequent Z00.00 Obesity (BMI 30-39.9) E66.9 Obstructive sleep apnea G47.33 Anemia D64.9 Hypercholesterolemia E78.00 Impulse control disorder F63.9 Impaired glucose tolerance R73.02 Bartholomew's palsy G51.0 Additional Codes PHQ-9 - 77225 - PHQ-9 Billing: Yes ([id number])
== END 2024-05-29 15:42 | disposition home or self-care (01) ==
LOC: HO.HMCH 14:54
PROVIDERS: PCP Internal Medicine; Visit Provider Internal Medicine
DX: Z00.00 Encounter for general adult medical examination without abnormal findings (principal); G47.33 Obstructive sleep apnea (adult) (pediatric); E66.9 Obesity, unspecified; Z68.38 Body mass index [BMI] 38.0-38.9, adult; D64.9 Anemia, unspecified; E78.00 Pure hypercholesterolemia, unspecified; F63.9 Impulse disorder, unspecified; R73.02 Impaired glucose tolerance (oral); G51.0 Bell's palsy

== ENCOUNTER → 2024-05-29 14:53 | Outpatient (BNVA) | payer MEDICARE, MEDICAID, SELFPAY | PROVIDERS: PCP Internal Medicine; Visit Provider Internal Medicine | DX: Z00.00 Encounter for general adult medical examination without abnormal findings (principal); E66.9 Obesity, unspecified; G47.33 Obstructive sleep apnea (adult) (pediatric); D64.9 Anemia, unspecified; E78.00 Pure hypercholesterolemia, unspecified; F63.9 Impulse disorder, unspecified; R73.02 Impaired glucose tolerance (oral); G51.0 Bell's palsy | CPT/HCPCS: 96127 ==

== ENCOUNTER 2024-08-30 14:30 | Outpatient (AMB) | payer MEDICARE, MEDICAID, SELFPAY ==
--- NOTE | 2024-08-30 14:37 | A.OFFPC_ITS ---
Vital Signs 08/30/24 14:38 Height 6 ft Weight 275 lb 6 oz BMI 37.3 BP 154/78 H Blood Pressure Location Lt brachial Position Sitting Pulse 90 Pulse Source Pulse Oximeter Temp 97.5 F Temp Source Temporal Artery Scan Pulse Oximetry (%) 98 Oxygen Delivery Method Room Air Intake Visit Reasons: 3 mnth f/u Cloth Measurer Machine Required: No Accompanied by: Self / Same As Patient Allergies cefaclor Allergy (Unknown, Verified 08/30/24 14:43) Unknown Erythromycin Allergy (Unknown, Verified 08/30/24 14:43) Unknown Penicillins (PENICILLINS) Allergy (Unknown, Verified 08/30/24 14:43) UNKNOWN simvastatin (Zocor) Allergy (Unknown, Verified 08/30/24 14:43) Unknown Medication List - Last Reconciled 08/30/24 by Martha Prado PA-C acetaminophen (Tylenol Extra Strength) 1,000 mg (2 x 500 mg) PO TID PRN 30 days allopurinol 100 mg PO BID 28 days bisacodyl (Dulcolax (bisacodyl)) 10 mg (2 x 5 mg) PO BEDTIME 2 days bupropion HCl SR 150 mg PO DAILY carboxymethylcellulose sodium 1% (Artificial Tears (carboxymethylcellulose)) 1 drp ophthalmic (eye) TID cholecalciferol (vitamin D3) 25 mcg (1/2 x 50 mcg (2,000 unit)) PO QAM [CPAP ] cyanocobalamin (vitamin B-12) (Vitamin B-12) 1,000 mcg PO DAILY dextromethorphan polistirex ER (Delsym 12 hour) 10 mL PO Q12H PRN fenofibrate nanocrystallized 145 mg PO BEDTIME fluticasone propionate 50 mcg/actuation 1 spray intranasal DAILY folic acid 1 mg PO DAILY multivitamin 1 tab PO DAILY peg 3350-electrolytes 236-22.74-6.74 -5.86 gram (Golytely) 240 mL PO Q10M 1 day risperidone (Risperdal) 0.5 mg PO BEDTIME risperidone 1 mg PO BEDTIME triamcinolone acetonide 0.5% 1 appl topical DAILY Tobacco use date assessed: 08/30/24 Dental Screening Dental Screen Date: 08/30/24 Did you have a dental visit in the last 12 months?: Yes Did you have a dental problem in the last 6 months where you did not have access to dental care?: No Was dental information given to patient?: Patient has dentist HPI 3 mnth f/u 2 HPI Details 49-year-old male with past medical histo ry anxiety, anemia, obstructive sleep apnea, hypercholesterolemia, impaired glucose tolerance last seen 05/[address] Gutierrez coming in for follow up. Presenting for follow-up care and management of Bartholomew's Palsy and anemia. 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 Anemia was noted in previous blood work, with hemoglobin levels consistently below 14 g/dL. Blood pressure was recorded at 155/82 mmHg during the visit, indicating hypertension. This is 1st value that has been elevated in the past year. The patient has lost 8 pounds since the last visit, attributed to increased physical activity. [facility] [place] [place] Medical History Medicare annual wellness visit, subsequent Colon cancer screening Annual physical exam Screening for colon cancer Medicare annual wellness visit, initial Impacted cerumen of both ears Rash Impaired glucose tolerance Mental and behavioral problem Impulse control disorder Hypercholesterolemia Obesity (BMI 30-39.9) Obstructive sleep apnea Anemia Vitamin B12 deficiency Anxiety Surgical History History of surgery on lower extremity History of eye surgery Family History Father Past heart attack Mother Breast cancer Paternal Grandfather CVD (cardiovascular disease) Myocardial infarction Paternal Uncle Myocardial infarction CVD (cardiovascular disease) Social History Housing: Apartment Alcohol intake: never Patient Tobacco Use Status: Former Tobacco user Tobacco use type: Cigarette e-Cigarette/Vaping Use: Never Used Second Hand Smoke Exposure: No service: No Current occupational status: disabled Cognitive needs: Yes Hearing needs: No Vision needs: Yes Questionnaire Thrive Questionnaire Date Thrive assessed: 01/23/24 FELIBERTO-7 AMB Questionnaire FELIBERTO-7 Date FELIBERTO - 7 assessed: 04/25/23 Source: Developed by Drs. Lester Mora, Ayana MeadTrace and colleagues, with an educational rekha from [employer]. Review of Systems Const Denies body aches, Denies chills, Denies fever(s), Denies headache(s) and Denies poor appetite Eyes Reports no additional complaints ENT Denies dizziness and Denies headache(s) Card Denies chest pain, Denies syncope, Denies edema, Denies irregular heart rhythm, Denies lightheadedness and Denies dyspnea Resp Denies cough and Denies dyspnea GI Denies abdominal pain, Denies constipation, Denies diarrhea, Denies nausea and Denies vomiting Reports no additional complaints Musc Reports no additional complaints and Denies abnormal gait Skin/Breast Reports system reviewed and no additional complaints, except as documented Neuro Denies abnormal gait, Denies dizziness, Denies syncope and Denies headache(s) Psych Reports no additional complaints Physical exam (Primary Care) Vital Signs: Last Vital Signs Temp 97.5 F 08/30/24 14:38 Pulse 90 08/30/24 14:38 BP 154/78 H 08/30/24 14:38 Pulse Ox 98 08/30/24 14:38 Oxygen Delivery Method Room Air 08/30/24 14:38 BMI result Body Mass Index 37.3 Tobacco/Smoking Status: Tobacco use Status Tobacco use date assessed 08/30/24 08/30/24 14:42 Patient Tobacco Use Status Former Tobacco user 08/30/24 14:37 Tobacco use type Cigarette 08/30/24 14:37 e-Cigarette/Vaping Use Never Used 08/30/24 14:37 Thrive Assessment: Date of Thrive Assessment Date Thrive assessed 01/23/24 08/30/24 14:37 Const General: cooperative, healthy appearing, comfortable and no acute distress Orientation/consciousness: patient oriented x3 [facility] Head: Yes normocephalic Ears: hearing grossly normal bilaterally General nose exam: Normal external nose present Eyes General: appearance normal, both eyes and all related structures Conjunctivae: conjunctivae normal Neck Neck: Yes full ROM and Yes no lymphadenopathy Resp Effort & Inspection: normal respiratory effort Auscultation: clear to auscultation bilaterally, no crackles, no rales, no rhonchi and no wheezes Cardio Rate: regular rate Rhythm: regular rhythm Skin General skin exam: no rashes or lesions noted Neuro General: patient oriented x3 Gait exam (Neuro): Normal gait present Extrem General: Yes normal to inspection, Yes full ROM and No edema Psych Affect: normal affect Attitude: cooperative Insight: Good insight present (Psych) Judgement: Good judgement present (Psych) Coding Level of Care Code Est Pt Level 3 (03842) Diagnoses Hypercholesterolemia E78.00 Obesity (BMI 30-39.9) E66.9 Impaired glucose tolerance R73.02 Obstructive sleep apnea G47.33 Anemia D64.9 Elevated blood pressure reading without diagnosis of hypertension R03.0 Bartholomew's palsy G51.0 Assessment & Plan Assessment & Plan (1) Hypercholesterolemia: Code(s): E78.00 - Pure hypercholesterolemia, unspecified Category: Medical Plan: Avoid fried foods, chicken skin, eggs, butter margarine, pastries and meat. Be it pork or beef they have a lot of cholesterol LDL goal of less than 130 and triglyceride of less than 150 on fenofibrate. Reminded about blood work (2) Obesity (BMI 30-39.9): Code(s): E66.9 - Obesity, unspecified Category: Medical Plan: Diet and exercise. Noted 8 lb intentional weight loss since last visit. Patient has been exercising and dieting recently. (3) Impaired glucose tolerance: Code(s): R73.02 - Impaired glucose tolerance (oral) Category: Medical Plan: Decrease the amount of carbohydrates such as pasta, bread, rice, and potatoes and limit the amount of sweets. Although fruits are generally healthy they should be eaten in moderation as they are still high in sugar reminded about blood work (4) Obstructive sleep apnea: Comment: On the CPAP uses > 4 hours and benefits patient Code(s): G47.33 - Obstructive sleep apnea (adult) (pediatric) Category: Medical Plan: Continue to use the CPAP more than 4 hours a night and benefits from this. (5) Anemia: Code(s): D64.9 - Anemia, unspecified Category: Medical Plan: Reminded about blood work. (6) Elevated blood pressure reading without diagnosis of hypertension: Code(s): R03.0 - Elevated blood-pressure reading, without diagnosis of hypertension Category: Medical Plan: Blood pressure elevated in the office today 154/78 and remained elevated when retaken. This is an isolated elevated blood pressure he has not had any elevations in the past year. Recommend patient keep a log of blood pressures at home and if they exceed 140/90 to reach out to the office and plan to recheck in 2 months. (7) Bartholomew's palsy: Comment: L facial weakness Code(s): G51.0 - Bartholomew's palsy Category: Medical Plan: Patient was given a printed copy of the neurology referral. Plan The patient will be referred to neurology for further evaluation and management of Bartholomew's Palsy, as symptoms have persisted for over a year. Follow-up blood work is recommended to reassess anemia, with emphasis on completing the tests as soon as possible. The patient is advised to monitor blood pressure daily at home and maintain a log for review at the next visit. If blood pressure readings exceed 140/90 mmHg, the patient should contact the clinic for potential medication management. This note was constructed using voice recognition software. While every effort has been made to ensure accuracy and cattle driver, still areas may have been included sometimes these areas may affect the content or meeting of the given symptoms. Total time spent caring for the patient today was 20 minutes. This includes time spent before the visit reviewing the chart, time spent during the visit, and time spent after the visit and documentation. Patient was informed and verbally consented to the use of an ambient scribe for clinic note documentation during this visit.
[2024-08-30 14:38] VITALS: BP 154/78; PULSE 90; TEMP 36.4; O2SAT 98; BMI 37.3
== END 2024-08-30 15:00 | disposition home or self-care (01) ==
PROVIDERS: PCP Internal Medicine
DX: E78.00 Pure hypercholesterolemia, unspecified (principal); E66.9 Obesity, unspecified; Z68.37 Body mass index [BMI] 37.0-37.9, adult; R73.02 Impaired glucose tolerance (oral); G47.33 Obstructive sleep apnea (adult) (pediatric); D64.9 Anemia, unspecified; R03.0 Elevated blood-pressure reading, without diagnosis of hypertension; G51.0 Bell's palsy

== ENCOUNTER → 2024-08-30 14:30 | Outpatient (BNVA) | payer MEDICARE, MEDICAID, SELFPAY | PROVIDERS: PCP Internal Medicine | DX: E78.00 Pure hypercholesterolemia, unspecified (principal); R73.02 Impaired glucose tolerance (oral); G47.33 Obstructive sleep apnea (adult) (pediatric); E66.9 Obesity, unspecified; Z68.37 Body mass index [BMI] 37.0-37.9, adult; D64.9 Anemia, unspecified; R03.0 Elevated blood-pressure reading, without diagnosis of hypertension; G51.0 Bell's palsy; Z87.891 Personal history of nicotine dependence; Z71.3 Dietary counseling and surveillance | CPT/HCPCS: 99212 ==

== ENCOUNTER 2024-09-21 10:24 | Outpatient (AMB) | payer MEDICARE, MEDICAID, SELFPAY ==
--- NOTE | 2024-09-21 10:27 | MHC.OFFVIS ---
Vital Signs 09/21/24 10:28 Height 6 ft Weight 281 lb BMI 38.1 BP 154/80 H Blood Pressure Location Rt brachial Position Sitting Pulse 80 Pulse Source Pulse Oximeter Pulse Oximetry (%) 98 Oxygen Delivery Method Room Air Intake Visit Reasons: INP: Bartholomew's palsy Intake Note: NPV Bartholomew's palsy Packaging Materials Inspector Required: No Accompanied by: Self / Same As Patient Allergies cefaclor Allergy (Unknown, Verified 09/21/24 10:28) Unknown Erythromycin Allergy (Unknown, Verified 09/21/24 10:28) Unknown Penicillins (PENICILLINS) Allergy (Unknown, Verified 09/21/24 10:28) UNKNOWN simvastatin (Zocor) Allergy (Unknown, Verified 09/21/24 10:28) Unknown HPI Comments Details: 49y/o Right handed male comes for neurological evaluation . He had [place] palsy on his left side 1 year ago.He still has significant residual weakness , speech issues . He denies nay numbness or pain.He denies any facial twitches. No eye dryness or pain He was treated with steroids , unclear if he got any antivirals.He denies any fever headaches or skin lesions during the palsy. [facility] Medical History Medicare annual wellness visit, subsequent Colon cancer screening Annual physical exam Screening for colon cancer Medicare annual wellness visit, initial Impacted cerumen of both ears Rash Impaired glucose tolerance Mental and behavioral problem Impulse control disorder Hypercholesterolemia Obesity (BMI 30-39.9) Obstructive sleep apnea Anemia Vitamin B12 deficiency Anxiety Surgical History History of surgery on lower extremity History of eye surgery Family History Father Past heart attack Mother Breast cancer Paternal Grandfather CVD (cardiovascular disease) Myocardial infarction Paternal Uncle Myocardial infarction CVD (cardiovascular disease) Social History Housing: Apartment Alcohol intake: never Patient Tobacco Use Status: Former Tobacco user Tobacco use type: Cigarette e-Cigarette/Vaping Use: Never Used Second Hand Smoke Exposure: No service: No Current occupational status: disabled Cognitive needs: Yes Hearing needs: No Vision needs: Yes Physical Exam Vital Signs: Last Vital Signs Pulse 80 09/21/24 10:28 BP 154/80 H 09/21/24 10:28 Pulse Ox 98 09/21/24 10:28 Oxygen Delivery Method Room Air 09/21/24 10:28 BMI result Body Mass Index 38.1 Const General: cooperative and comfortable Nutritional Appearance: obese Orientation/consciousness: patient oriented x3 Eyes Pupils: Equal, round and reactive pupils present Neuro Other: Left Lower motor neuron FACIAL palsy - no forhead movement mild lagophthalmos Difficulty closing his left eye Flattened nasolabial fold Mallampatti grade 4 sluured speech General: patient oriented x3, tone normal and moves all extremities Cranial nerves: Yes Facial sensation intact/muscles of mastication intact, Yes Equal, round and reactive pupils present, Yes Bilaterally intact EOM present, Yes Nystagmus not present and Yes Midline tongue present Cognition (Neuro): normal cognition Speech: Other speech findings present (Neuro) (slurred) Gait exam (Neuro): Antalgic gait present Motor exam (neuro): 5/5 motor strength present throughout and Normal motor muscle tone present throughout Deep tendon reflexes (DTR's): Right triceps reflex intensity grade: 1+, Left triceps reflex intensity grade: 1+, Rt Biceps (C5, C6): 1+, Left biceps reflex intensity grade: 1+, Right brachioradialis reflex intensity grade: 1+, Left brachioradialis reflex intensity grade: 1+, Right patellar reflex intensity grade: 1+ and Left patellar reflex intensity grade: 1+ Coordination: [id number] test normal Assessment & Plan Assessment & Plan (1) Bartholomew's palsy: Comment: L facial weakness 2023 Code(s): G51.0 - Bartholomew's palsy Category: Medical Plan He had only a partial recovery - still moderately severe palsy I will refer him to PT for addition management- nerve stimulation, facial muscle exercises etc consider ophthalmology ref for incomplete eye closure Orders: Orders PT Evaluation and Treatment Today G51.0 - Bartholomew's palsy Coding Level of Care Code New Pt Level 4 (43383) Diagnoses Bartholomew's palsy G51.0
[2024-09-21 10:28] VITALS: BP 154/80; PULSE 80; O2SAT 98; BMI 38.1
== END 2024-09-21 11:12 | disposition home or self-care (01) ==
LOC: HO.HSMS 10:25
PROVIDERS: PCP Internal Medicine; Visit Provider Psychiatry & Neurology Neurology
DX: G51.0 Bell's palsy (principal)
CPT/HCPCS: 99204

== ENCOUNTER → 2024-09-21 10:24 | Outpatient (BNVA) | payer MEDICARE, MEDICAID, SELFPAY | PROVIDERS: PCP Internal Medicine; Visit Provider Psychiatry & Neurology Neurology | DX: G51.0 Bell's palsy (principal) | CPT/HCPCS: 99202 ==

== ENCOUNTER 2024-10-30 15:17 | Outpatient (AMB) | payer MEDICARE, MEDICAID, SELFPAY ==
--- NOTE | 2024-10-30 15:28 | A.OFFPC_ITS ---
Vital Signs 10/30/24 15:30 10/30/24 16:02 Height 6 ft Weight 280 lb 4 oz BMI 38.0 BP 166/90 H 142/82 H Blood Pressure Location Lt brachial Lt brachial Position Sitting Sitting Pulse 88 Pulse Source Pulse Oximeter Pulse Oximetry (%) 98 Oxygen Delivery Method Room Air Intake Visit Reasons: f/u HTN Form [employer] Forms Required: No Accompanied by: Self / Same As Patient Allergies cefaclor Allergy (Unknown, Verified 10/30/24 15:29) Unknown Erythromycin Allergy (Unknown, Verified 10/30/24 15:29) Unknown Penicillins (PENICILLINS) Allergy (Unknown, Verified 10/30/24 15:29) UNKNOWN simvastatin (Zocor) Allergy (Unknown, Verified 10/30/24 15:29) Unknown Tobacco use date assessed: 10/30/24 Dental Screening Dental Screen Date: 10/30/24 Did you have a dental visit in the last 12 months?: Yes Did you have a dental problem in the last 6 months where you did not have access to dental care?: No Was dental information given to patient?: Patient has dentist HPI f/u HTN HPI Details 49-year-old male with past medical histo ry anxiety, anemia, obstructive sleep apnea, hypercholesterolemia, impaired glucose tolerance last seen 08/2024 coming in for follow up.? In review of the notes, patient was seen by Neurology 09/2024 for Bartholomew's palsy recommended PT and referral was placed. Presenting with hypertension. Patient reports he has been intermittently taking blood pressures at home and systolic ranges have been in the 120 range. It does also mentioned a increased stress due to recent loss of his younger brother. He has no other concerns today. [facility] Medical History Medicare annual wellness visit, subsequent Colon cancer screening Annual physical exam Screening for colon cancer Medicare annual wellness visit, initial Impacted cerumen of both ears Rash Impaired glucose tolerance Mental and behavioral problem Impulse control disorder Hypercholesterolemia Obesity (BMI 30-39.9) Obstructive sleep apnea Anemia Vitamin B12 deficiency Anxiety Surgical History History of surgery on lower extremity History of eye surgery Family History Father Past heart attack Mother Breast cancer Paternal Grandfather CVD (cardiovascular disease) Myocardial infarction Paternal Uncle Myocardial infarction CVD (cardiovascular disease) Brother No problems noted. Social History Housing: Apartment Alcohol intake: never Patient Tobacco Use Status: Former Tobacco user Tobacco use type: Cigarette e-Cigarette/Vaping Use: Never Used Second Hand Smoke Exposure: No service: No Current occupational status: disabled Cognitive needs: Yes Hearing needs: No Vision needs: Yes Questionnaire Thrive Questionnaire Date Thrive assessed: 10/30/24 I am a: Parent/Caregiver What is your living situation today?: I have a steady place to live Within the past 12 months, did the food you bought not last and you didn't have the money to get more?: Never true Within the past 12 months, did you worry whether your food would run out before you got money to buy more?: Never true Do you have trouble paying for medicines?: Yes Do you have trouble getting transportation to medical appointments?: No Do you have trouble paying your heating and electricity bill?: No Do you have trouble taking care of your child, family member or friend?: No Do you have trouble with day-to-day activities such as bathing, preparing meals, shopping, managing finances, etc.?: No Are you currently unemployed and looking for a job?: No Are you interested in more education?: No Please select the resources that you would like help with: None Currently or been in a relationship where the following occur: No concerns reported THRIVE Score: 0 AUDIT C Alcohol Use Questionnaire (AUDIT-C) 1. How often do you have a drink containing alcohol?: Never 3. How often do you have six or more drinks on one occasion?: Never Total Score: 0 FELIBERTO-7 AMB Questionnaire FELIBERTO-7 Date FELIBERTO - 7 assessed: 10/30/24 Feeling nervous, anxious, or on edge: 0 = Not at all Not being able to stop or control worryin = Not at all Worrying too much about different things: 0 = Not at all Trouble relaxin = Not at all Being so restless that it is hard to sit still: 0 = Not at all Becoming easily annoyed or irritable: 0 = Not at all Feeling afraid as if something awful might happen: 0 = Not at all Total FELIBERTO-7 score (0-4 normal; 5-9 mild; 10-14 moderate; 15-21 severe): 0 Source: Developed by Drs. Lester Mora, yAana Mead, Trace Lomeli and colleagues, with an educational rekha from [employer]. FELIBERTO-7 Assessment Billing FELIBERTO-7 Assessment Tool: FELIBERTO-7 Assessment 24396 Review of Systems Const Denies body aches, Denies chills, Denies fever(s), Denies headache(s) and Denies poor appetite Eyes Reports no additional complaints ENT Denies dysphagia, Denies dizziness, Denies headache(s) and Denies odynophagia Card Denies chest pain, Denies syncope, Denies edema, Denies irregular heart rhythm, Denies lightheadedness and Denies dyspnea Resp Denies cough and Denies dyspnea GI Denies abdominal pain, Denies constipation, Denies dysphagia, Denies diarrhea, Denies nausea, Denies odynophagia and Denies vomiting Reports no additional complaints Musc Reports no additional complaints and Denies abnormal gait Skin/Breast Reports system reviewed and no additional complaints, except as documented Neuro Denies abnormal gait, Denies dizziness, Denies syncope and Denies headache(s) Psych Reports no additional complaints Physical exam (Primary Care) Vital Signs: Last Vital Signs Pulse 88 10/30/24 15:30 BP 166/90 H 10/30/24 15:30 Pulse Ox 98 10/30/24 15:30 Oxygen Delivery Method Room Air 10/30/24 15:30 BMI result Body Mass Index 38.0 Tobacco/Smoking Status: Tobacco use Status Tobacco use date assessed 10/30/24 10/30/24 15:34 Patient Tobacco Use Status Former Tobacco user 10/30/24 15:34 Tobacco use type Cigarette 10/30/24 15:34 e-Cigarette/Vaping Use Never Used 10/30/24 15:34 Thrive Assessment: Date of Thrive Assessment Date Thrive assessed 10/30/24 10/30/24 15:34 Currently or been in a relationship where the following occur: No concerns reported Const General: cooperative, healthy appearing, comfortable and no acute distress Orientation/consciousness: patient oriented x3 [facility] Head: Yes normocephalic Ears: hearing grossly normal bilaterally General nose exam: Normal external nose present Eyes General: appearance normal, both eyes and all related structures Conjunctivae: conjunctivae normal Neck Neck: Yes full ROM and Yes no lymphadenopathy Resp Effort & Inspection: normal respiratory effort Auscultation: clear to auscultation bilaterally, no crackles, no rales, no rhonchi and no wheezes Cardio Rate: regular rate Rhythm: regular rhythm Skin General skin exam: no rashes or lesions noted Neuro General: patient oriented x3 Gait exam (Neuro): Normal gait present Extrem General: Yes normal to inspection, Yes full ROM and No edema Psych Affect: normal affect Attitude: cooperative Insight: Good insight present (Psych) Judgement: Good judgement present (Psych) Coding Level of Care Code Est Pt Level 3 (16569) Diagnoses Hypercholesterolemia E78.00 Obesity (BMI 30-39.9) E66.9 Impaired glucose tolerance R73.02 Elevated blood pressure reading without diagnosis of hypertension R03.0 Additional Codes FELIBERTO-7 Assessment Billing - FELIBERTO-7 Assessment Tool: FELIBERTO-7 Assessment 54101 ([id number]) Assessment & Plan Assessment & Plan (1) Hypercholesterolemia: Code(s): E78.00 - Pure hypercholesterolemia, unspecified Category: Medical Plan: Avoid fried foods, chicken skin, eggs, butter margarine, pastries and meat. Be it pork or beef they have a lot of cholesterol LDL goal of less than 130 and triglyceride of less than 150 on fenofibrate. Reminded about blood work (2) Obesity (BMI 30-39.9): Code(s): E66.9 - Obesity, unspecified Category: Medical Plan: Diet and exercise. Patient has been exercising and dieting recently. (3) Impaired glucose tolerance: Code(s): R73.02 - Impaired glucose tolerance (oral) Category: Medical Plan: Decrease the amount of carbohydrates such as pasta, bread, rice, and potatoes and limit the amount of sweets. Although fruits are generally healthy they should be eaten in moderation as they are still high in sugar reminded about blood work (4) Elevated blood pressure reading without diagnosis of hypertension: Code(s): R03.0 - Elevated blood-pressure reading, without diagnosis of hypertension Category: Medical Plan: Blood pressure mildly elevated on exam today 142/82 however ranges at home have been within normal limits less than 140/90. He attributes of the elevated blood pressure due to the recent family stress. Avoid salt intake and encourage healthy diet and regular exercise. Plan The patient is advised to monitor blood pressure regularly at home and report any significant changes. Follow-up is scheduled in three months to reassess blood pressure and overall health status. This note was constructed using voice recognition software. While every effort has been made to ensure accuracy and iap displays analyst, still areas may have been included sometimes these areas may affect the content or meeting of the given symptoms. Total time spent caring for the patient today was 20 minutes. This includes time spent before the visit reviewing the chart, time spent during the visit, and time spent after the visit and documentation. Patient was informed and verbally consented to the use of an ambient scribe for clinic note documentation during this visit.
[2024-10-30 15:30] VITALS: BP 166/90; PULSE 88; O2SAT 98; BMI 38.0
[2024-10-30 16:02] VITALS: BP 142/82
== END 2024-10-30 16:16 | disposition home or self-care (01) ==
LOC: HO.HMCH 15:18
PROVIDERS: PCP Internal Medicine
DX: E78.00 Pure hypercholesterolemia, unspecified (principal); E66.9 Obesity, unspecified; Z68.38 Body mass index [BMI] 38.0-38.9, adult; R73.02 Impaired glucose tolerance (oral); R03.0 Elevated blood-pressure reading, without diagnosis of hypertension

== ENCOUNTER → 2024-10-30 15:17 | Outpatient (BNVA) | payer MEDICARE, MEDICAID, SELFPAY | PROVIDERS: PCP Internal Medicine | DX: E78.00 Pure hypercholesterolemia, unspecified (principal); R73.02 Impaired glucose tolerance (oral); R03.0 Elevated blood-pressure reading, without diagnosis of hypertension; F41.9 Anxiety disorder, unspecified; E66.9 Obesity, unspecified; Z68.38 Body mass index [BMI] 38.0-38.9, adult; Z87.891 Personal history of nicotine dependence; Z71.3 Dietary counseling and surveillance | CPT/HCPCS: 96127; 99212 ==

== ENCOUNTER 2024-12-28 07:30 | Outpatient (AMB) | payer MEDICARE, MEDICAID, SELFPAY ==
--- NOTE | 2024-12-28 07:31 | A.OFFVIS_ITS ---
Vital Signs 12/28/24 07:32 Height 6 ft Weight 274 lb 2 oz BMI 37.2 BP 158/82 H Blood Pressure Location Rt brachial Position Sitting Pulse 64 Pulse Source Pulse Oximeter Pulse Oximetry (%) 97 Oxygen Delivery Method Room Air Intake Visit Reasons: follow up Intake Note: Follow up Bartholomew's palsy - Lt facial weakness Programmer Business Required: No Accompanied by: Self / Same As Patient Allergies cefaclor Allergy (Unknown, Verified 12/28/24 07:32) Unknown Erythromycin Allergy (Unknown, Verified 12/28/24 07:32) Unknown Penicillins (PENICILLINS) Allergy (Unknown, Verified 12/28/24 07:32) UNKNOWN simvastatin (Zocor) Allergy (Unknown, Verified 12/28/24 07:32) Unknown HPI Comments Details: 49y/o Right handed male comes for follow up . He had Adrian palsy on his left side September 2023.He was sent to PT but looks like he did not have any sessions with them. He alos ahs YONY on CPAP - [facility] and is compliant as per patient .He still has significant residual weakness , speech issues . He denies any numbness or pain.He denies any facial twitches. No eye dryness or pain He was treated with steroids , unclear if he got any antivirals.He denies any fever headaches or skin lesions during the palsy. [facility] Medical History Medicare annual wellness visit, subsequent Colon cancer screening Annual physical exam Screening for colon cancer Medicare annual wellness visit, initial Impacted cerumen of both ears Rash Impaired glucose tolerance Mental and behavioral problem Impulse control disorder Hypercholesterolemia Obesity (BMI 30-39.9) Obstructive sleep apnea Anemia Vitamin B12 deficiency Anxiety Surgical History History of surgery on lower extremity History of eye surgery Family History Father Past heart attack Mother Breast cancer Paternal Grandfather CVD (cardiovascular disease) Myocardial infarction Paternal Uncle Myocardial infarction CVD (cardiovascular disease) Brother No problems noted. Social History Housing: Apartment Alcohol intake: never Patient Tobacco Use Status: Former Tobacco user Tobacco use type: Cigarette e-Cigarette/Vaping Use: Never Used Second Hand Smoke Exposure: No service: No Current occupational status: disabled Cognitive needs: Yes Hearing needs: No Vision needs: Yes Physical Exam Vital Signs: Last Vital Signs Pulse 64 12/28/24 07:32 BP 158/82 H 12/28/24 07:32 Pulse Ox 97 12/28/24 07:32 Oxygen Delivery Method Room Air 12/28/24 07:32 BMI result Body Mass Index 37.2 Const General: cooperative and comfortable Nutritional Appearance: obese Orientation/consciousness: patient oriented x3 Eyes Pupils: Equal, round and reactive pupils present Neuro Other: Left Lower motor neuron FACIAL palsy - no forhead movement mild lagophthalmos Difficulty closing his left eye Flattened nasolabial fold Mallampatti grade 4 sluured speech General: patient oriented x3, tone normal and moves all extremities Cranial nerves: Yes Facial sensation intact/muscles of mastication intact, Yes Equal, round and reactive pupils present, Yes Bilaterally intact EOM present, Yes Nystagmus not present and Yes Midline tongue present Cognition (Neuro): normal cognition Speech: Other speech findings present (Neuro) (slurred) Gait exam (Neuro): Antalgic gait present Motor exam (neuro): 5/5 motor strength present throughout and Normal motor muscle tone present throughout Coordination: [id number] test normal Assessment & Plan Assessment & Plan (1) Bartholomew's palsy: Comment: L facial weakness 2023 Code(s): G51.0 - Bartholomew's palsy Category: Medical Plan He had only a partial recovery - still moderately severe palsy I will refer him to PT for addition management- nerve stimulation, facial muscle exercises etc consider ophthalmology ref for incomplete eye closure - sleep with eye patch at night to prevent dryness and infection Coding Level of Care Code Est Pt Level 4 (71695) Diagnoses Bartholomew's palsy G51.0
[2024-12-28 07:32] VITALS: BP 158/82; PULSE 64; O2SAT 97; BMI 37.2
== END 2024-12-28 07:56 | disposition home or self-care (01) ==
LOC: HO.HSMS 07:31
PROVIDERS: PCP Internal Medicine; Visit Provider Psychiatry & Neurology Neurology
DX: G51.0 Bell's palsy (principal)
CPT/HCPCS: 99214

== ENCOUNTER → 2024-12-28 07:30 | Outpatient (BNVA) | payer MEDICARE, MEDICAID, SELFPAY | PROVIDERS: PCP Internal Medicine; Visit Provider Psychiatry & Neurology Neurology | DX: G51.0 Bell's palsy (principal) | CPT/HCPCS: 99212 ==